=== PATIENT | female | born 1950 | race Caucasian/White ===

== ENCOUNTER → 2017-01-06 | Outpatient (CLI) | payer BC ==
--- NOTE | 2017-01-06 11:12 | MM ---
Reason for exam: follow-up at short interval from prior study. Last mammogram was performed 6 months ago. History: Patient is postmenopausal. Took hormonal contraceptives for 14 years beginning at age 26. Physical Findings: Nurse did not find any significant physical abnormalities on exam. MG 3D Diag Mammo W/Cad LT CC and MLO view(s) were taken of the left breast. Prior study comparison: June 23, 2016, bilateral MG 3d screening mammo w/cad. July 21, 2002, bilateral special view mammogram. The breast tissue is heterogeneously dense. This may lower the sensitivity of mammography. Nodule in the left breast is stable. These results were verbally communicated with the patient and result sheet given to the patient on 01/06/17. ASSESSMENT: Incomplete: need additional imaging evaluation, BI-RAD 0 RECOMMENDATION: Ultrasound of the left breast.
--- NOTE | 2017-01-06 11:13 | USB ---
Reason for exam: additional evaluation requested from abnormal screening. History: Patient is postmenopausal. Took hormonal contraceptives for 14 years beginning at age 26. US Breast LT Left breast breast ultrasound includes all four quadrants, the retroareolar region and axilla. Finding demonstrate a 0.5 x 0.3 x0.4cm oval, hypoechoic, vascular lesion at 3 o'clock minimally larger. These results were verbally communicated with the patient and result sheet given to the patient on 01/06/17. ASSESSMENT: Suspicious, BI-RAD 4 RECOMMENDATION: Ultrasound core biopsy of the left breast. Called Dr. Cazares with mammographic findings and has scheduled an appointment for the patient for 01/26/17 at 9:[address] Waller. PRELIMINARY REPORT CALLED AND FAXED TO DR. WALLER ON AT 300/TMP.
== END | disposition home or self-care (01) ==
LOC: RADMAMWWP 08:55
PROVIDERS: ATTEND Family Medicine
DX: R92.8 Other abnormal and inconclusive findings on diagnostic imaging of breast (principal)
CPT/HCPCS: 76641; G0206; G0279

== ENCOUNTER → 2017-01-14 | Day surgery (SDC) | payer BC ==
[~2017-01-14] MED LIST: BACITRACIN OINT 1 EACH PACKET TOPICAL ONE; LIDOCAINE 1% INJ 10MG/ML (20 ML MDV) ONE; SODIUM BICARB 4% 5 ML VIAL (0.48 MEQ/ML) ONE
--- NOTE | 2017-01-14 09:52 | USB ---
EXAMINATION TYPE: US biopsy breast VAD LT, MG postbiopsy diagnostic mammo LT wo CAD DATE OF EXAM: 01/14/2017 8:53 AM CLINICAL HISTORY: 66-year-old female R92.8 Abn Mammo. TECHNIQUE: Ultrasound guided core biopsy of the 3:00 left breast. COMPARISON: 01/06/2017 FINDINGS: The procedure of ultrasound guided core biopsy was explained to the patient. Benefits, alternatives, and risks were discussed. An informed consent was then obtained. Targeted scanning left breast 3:00 shows the 6 mm hypoechoic lesion that was noted to have slightly enlarged. This was targeted for biopsy. The patient was placed in supine positioning for imaging and for the procedure. The overlying skin was prepped and draped in usual sterile fashion. Lidocaine buffered with bicarbonate was used as anesthetic into the skin and subcutaneous tissue up to area of concern in the 3:00 left breast. Under ultrasound guidance, a 13-gauge vacuum-assisted mammotome Elite biopsy gun was used to obtain 6 core samples. Following this, a ribbon clip was left in lesion. The patient tolerated the procedure well. Small hematoma formation was noted adjacent to the biopsy site measuring 3.2 x 1.7 x 2.3 cm. Extended pressure was placed on the breast after procedure. The patient was kept in the radiology department for short stay after the procedure and then discharged home in stable condition. Post procedure mammogram shows clip in appropriate position at the expected mammographic abnormality, but, possibly slightly anteriorly displaced by the hematoma. IMPRESSION: Successful, uncomplicated ultrasound guided core biopsy of area of concern in the 3:00 left breast, full pathology results to follow. Small 3 cm hematoma formation adjacent to the biopsy site. Pathology Results: Benign BREAST, LEFT, CORE BIOPSY: BENIGN LYMPH NODE TISSUE. ADJACENT BENIGN BREAST AND FIBROADIPOSE TISSUE Recommendation Follow up mammogram of the left breast in 6 months. SUDARSHAN
== END ==
LOC: RADUSWWP 07:34
PROVIDERS: ATTEND Surgery
DX: R92.8 Other abnormal and inconclusive findings on diagnostic imaging of breast (principal); N64.89 Other specified disorders of breast; L76.32 Postprocedural hematoma of skin and subcutaneous tissue following other procedure
CPT/HCPCS: 88305; 19083; G0206; A4648; J2001

== ENCOUNTER → 2020-02-28 | Outpatient (CLI) | payer MEDICARE, BC ==
--- NOTE | 2020-02-29 09:57 | MM ---
Reason for exam: screening (asymptomatic). Last mammogram was performed 3 years and 1 month ago. History: Patient is postmenopausal. Benign US biopsy breast VAD LT of the left breast, January 14, 2017. Took hormonal contraceptives for 14 years beginning at age 26. Physical Findings: A clinical breast exam by your physician is recommended on an annual basis and results should be correlated with mammographic findings. MG 3D Diag Mammo W/Cad PHILLIP Bilateral CC and MLO view(s) were taken. Prior study comparison: January 14, 2017, left breast MG diagnostic mammo LT wo CAD. January 06, 2017, left breast MG 3d diag mammo w/cad LT. The breast tissue is heterogeneously dense. This may lower the sensitivity of mammography. Benign appearing bilateral calcifications. Previous mammotome biopsy in the left breast. There is chronic nodularity in the left breast. These results were verbally communicated with the patient and result sheet given to the patient on 02/28/20. ASSESSMENT: Benign, BI-RAD 2 RECOMMENDATION: Routine screening mammogram of both breasts in 1 year.
== END | disposition home or self-care (01) ==
LOC: RADMAMWWP 10:24
PROVIDERS: ATTEND Family Medicine
DX: R92.8 Other abnormal and inconclusive findings on diagnostic imaging of breast (principal)
CPT/HCPCS: 77066; G0279; 77062

== ENCOUNTER → 2023-02-12 | Outpatient (CLI) | payer MEDICARE, BC ==
--- NOTE | 2023-02-12 10:10 | US ---
EXAMINATION TYPE: US liver DATE OF EXAM: 02/12/2023 COMPARISON: NONE CLINICAL INDICATION: Female, 72 years old with history of 74.01 ELEVATION OF LEVELS OF LIVER TRANSAMI NASE L; Elevated liver enzymes. cholecystectomy TECHNIQUE: Multiple sonographic images of the right upper quadrant are obtained. FINDINGS: EXAM MEASUREMENTS: Liver Length: 16.8 cm Gallbladder Wall: Surgically absent CBD: 1.0 cm Right Kidney: 10.9 x 4.3 x 4.3 cm Pancreas: limited evaluation due to overlying bowel content Liver: appears wnl Gallbladder: Surgically absent Evidence for sonographic Adams's sign: no CBD: wnl Right Kidney: no evidence of hydronephrosis Visualized pancreas within normal limits. Visualized liver slightly heterogeneous without worrisome m ass or ductal dilatation. No adjacent ascites. Gallbladder surgically absent. Common bile duct upper limits of normal after cholecystectomy. No right-sided hydronephrosis. IMPRESSION: No worrisome focal intrahepatic mass or intrahepatic ductal dilatation.
== END | disposition home or self-care (01) ==
LOC: RADUSWWP 09:24
PROVIDERS: ATTEND Family Medicine
DX: R74.01 Elevation of levels of liver transaminase levels (principal)
CPT/HCPCS: 76705

== ENCOUNTER → 2023-03-26 | Outpatient (CLI) | payer MEDICARE, BC ==
--- NOTE | 2023-03-29 08:30 | MM ---
Reason for Exam: Screening (asymptomatic). Last mammogram was performed 3 year(s) and 1 month(s) ago. Patient History: Menarche at age 12. First Full-Term at age 30. Late child-bearing (after 30). Postmenopausal. Hormonal Contraceptives for 14 years from age 26 until age 40. 01/14/2017, Benign Core Biopsy on the left side. Risk Values: Aparna 5 year model risk: 2.9%. NCI Lifetime model risk: 7.4%. Prior Study Comparison: 01/06/2017 Left Diagnostic Mammogram, [facility]. 01/14/2017 Left Diagnostic Mammogram, [facility]. 02/28/2020 Bilateral Diagnostic Mammogram, [facility]. Tissue Density: There are scattered fibroglandular densities. Findings: Analyzed By CAD. There is no suspicious group of microcalcifications or new suspicious mass in either breast. Overall Assessment: Benign, BI-RAD 2 Management: Screening Mammogram of both breasts in 1 year. . Patient should continue monthly self-breast exams. A clinical breast exam by your physician is recommended on an annual basis. This exam should not preclude additional follow-up of suspicious palpable abnormalities. Note on Aparna scores and lifetime risk: 1. A Aparna score greater than 3% is considered moderate risk. If this is the case, consider specialist referral to assess eligibility for a risk reducing agent. 2. If overall lifetime risk for the development of breast cancer is 20% or higher, the patient may qualify for future screening with alternating mammogram and breast MRI. Electronically signed and approved by: Kolby Bolden M.D. Radiologis
== END | disposition home or self-care (01) ==
LOC: RADMAMWWP 13:22
PROVIDERS: ATTEND Family Medicine
DX: Z12.31 Encounter for screening mammogram for malignant neoplasm of breast (principal); Z78.0 Asymptomatic menopausal state
CPT/HCPCS: 77063; 77067

== ENCOUNTER → 2023-04-08 | Outpatient (CLI) | payer MEDICARE, BC ==
--- NOTE | 2023-05-04 12:59 | EM ---
EVENT MONITOR A 21-day event monitor. INDICATION: Cardiac murmur. FINDINGS: Underlying rhythm is sinus with episodes of paroxysmal atrial tachycardia with a heart rate of 138 beats per minute. CONCLUSION: This event monitor shows sinus rhythm with self-limited runs of paroxysmal atrial tachycardia with a heart rate of 130 beats per minute. MMODL / IJN: [id number] /
== END | disposition home or self-care (01) ==
LOC: RADECHMAIN 11:58
PROVIDERS: ATTEND Family Medicine
DX: I47.1 Supraventricular tachycardia (principal); I10 Essential (primary) hypertension
CPT/HCPCS: 93270

== ENCOUNTER 2023-04-12 20:49 | Inpatient (IN) | payer MEDICARE, BC ==
[2023-04-12] MEDS ORDERED: Alteplase PER PHARMACY Stroke 1 EACH MISC MISCELLANE PRN (20:51)
[2023-04-12] MEDS ORDERED: ALTEPLASE BOLUS FOR STROKE 7 MG in EMPTY SYRINGE 1 SYR IV STA (20:53)
[2023-04-12] MEDS ORDERED: ALTEPLASE 63 MG in EMPTY BAG 1 BAG IV STA (20:53)
[2023-04-12 21:16] LABS: Glucose,Whole Blood 120 mg/dL (70-110)
--- NOTE | 2023-04-12 21:16 | CT ---
EXAMINATION TYPE: CT brain wo con for TPA CT DLP: 1220.8 mGycm, Automated exposure control for dose reduction was used. DATE OF EXAM: 04/12/2023 9:07 PM COMPARISON: . CLINICAL INDICATION:Female, 72 years old with history of Neuro deficit, acute, stroke suspected, Neur o deficit, acute, stroke suspected TECHNIQUE: Brain: Axial CT images of the brain were obtained with coronal and sagittal reformats created and rev iewed. Contrast used: None. Oral contrast used: None. FINDINGS: Brain: Extra-axial spaces: No abnormal extra-axial fluid collections. Ventricular system: Within normal limits Cerebral parenchyma: No acute intraparenchymal hemorrhage or mass effect. The trevizo-white junction is well differentiated. Cerebellum: Unremarkable. Mass effect: No evidence of midline shift. Intracranial vasculature: Atherosclerotic calcifications of the intracranial vessels. Soft tissues: Normal. Calvarium/osseous structures: No depressed skull fracture. Paranasal sinuses and mastoid air cells: Mild scattered paranasal sinus disease. Visualized orbits: Orbital contents are intact. IMPRESSION: No acute intracranial process.
[2023-04-12 21:21] LABS: Basophils # (A) 0.1 k/uL (0-0.2); Basophils % (A) 1 %; Eosinophils # (A) 0.3 k/uL (0-0.7); Eosinophils % (A) 3 %; HCT 45.4 % (34.0-46.0); HGB 15.2 gm/dL (11.4-16.0); Lymphocytes # (A) 3.1 k/uL (1.0-4.8); Lymphocytes % (A) 34 %; MCH 30.3 pg (25.0-35.0); MCHC 33.5 g/dL (31.0-37.0); MCV 90.2 fL (80.0-100.0); Mean Platelet Volume 7.9; Monocytes # (A) 0.7 k/uL (0-1.0); Monocytes % (A) 8 %; Neutrophils # (A) 4.6 k/uL (1.3-7.7); Neutrophils % (A) 51 %; Platelet Count 285 k/uL (150-450); RBC 5.03 m/uL (3.80-5.40); RDW 12.7 % (11.5-15.5)
[2023-04-12 21:30] LABS: ALT 36 U/L (4-34); AST 32 U/L (14-36); African American GFR (CKD) >90 (>60 ml/min/1.73 sqM); Alkaline Phosphatase 85 U/L (38-126); Anion Gap 9 mmol/L; Blood Urea Nitrogen 10 mg/dL (7-17); Calcium 8.4 mg/dL (8.4-10.2); Carbon Dioxide 23 mmol/L (22-30); Chloride 105 mmol/L (98-107); Creatine Kinase 109 U/L (30-135); Glucose 123 mg/dL (74-99); Non-African American GFR(CKD) >90 (>60 ml/min/1.73 sqM); Potassium 3.5 mmol/L (3.5-5.1); Sodium 137 mmol/L (137-145); Total Bilirubin 1.9 mg/dL (0.2-1.3); Total Protein 7.4 g/dL (6.3-8.2)
[2023-04-12 21:38] LABS: Partial Thromboplastin Time 23.9 sec (22.0-30.0); Prothrombin Time 10.4 sec (9.0-12.0)
--- NOTE | 2023-04-12 21:47 | CT ---
EXAMINATION TYPE: CT angio head neck CT DLP: 511 mGycm, Automated exposure control for dose reduction was used. DATE OF EXAM: 04/12/2023 9:29 PM COMPARISON: . CLINICAL INDICATION:Female, 72 years old with history of Neuro deficit, acute, stroke suspected; PHH, Neuro deficit, acute, stroke suspected TECHNIQUE: Axially acquired helical CT angiogram of the head and neck was obtained with contrast. Axi al images are supplemented with 3D reconstructions [facility] NASCET criteria used. Contrast used:65ml mL of Isovue 370 with IV Contrast, Oral contrast used: None. FINDINGS: CTA HEAD: No evidence of acute intracranial hemorrhage, mass effect, or midline shift. The ventricles, sulci, a nd cisterns are unremarkable. The visualized portions of the internal carotid arteries, middle cerebral arteries, anterior cerebral arteries, and posterior cerebral arteries are patent. The basilar and vertebral arteries are patent. CTA NECK: Right Carotid System: The common carotid and external carotid arteries are patent. There is approximately 50% stenosis at t he carotid bifurcation secondary to calcified/noncalcified plaquing. The rest of the internal carotid artery is patent. Left Carotid System: The common carotid and external carotid arteries are patent. There is approximately 50% stenosis at t he carotid bifurcation secondary to calcified/noncalcified plaquing. The rest of the internal carotid artery is patent. Vertebral arteries are patent without evidence hemodynamically significant stenosis. There is a three-vessel aortic arch. The origins of the great vessels are patent. No evidence of hemo dynamically significant stenosis. Upper thorax: IMPRESSION: 1. No evidence of dissection of the cervical internal carotid arteries or vertebral arteries or any e vidence of significant stenosis at the carotid bifurcations. 2. No evidence of intracranial high-grade stenosis or intracranial aneurysm.
--- NOTE | 2023-04-12 21:49 | XR ---
EXAMINATION TYPE: XR chest 2V DATE OF EXAM: 04/12/2023 9:38 PM COMPARISON: None TECHNIQUE: XR chest 2V Frontal and lateral views of the chest. CLINICAL INDICATION:Female, 72 years old with history of altered mental status; FINDINGS: Lungs/Pleura: There is no evidence of pleural effusion, focal consolidation, or pneumothorax. Pulmonary vascularity: Unremarkable. Heart/mediastinum: Cardiomediastinal silhouette is unremarkable. Musculoskeletal: No acute osseous pathology. IMPRESSION: No acute cardiopulmonary disease/process.
[2023-04-12] MEDS ORDERED: SODIUM CHLORIDE 0.9% 50 ML MINI-BAG IV ONE (21:53)
--- NOTE | 2023-04-12 23:36 | ED ---
General Adult HPI - General Chief complaint: Neuro Symptoms/Deficit Stated complaint: Stroke like symptoms Time Seen by Provider: 04/12/23 20:50 Source: patient, EMS Mode of arrival: EMS Limitations: no limitations - History of Present Illness Initial comments: This is a 72-year-old female with a past medical history including hypertension presents emergency department via EMS for possible stroke. It was reported by the patient's family that she has had weakness in her lower legs throat the day but was acutely noted to have facial droop, slurring his patient, left-sided weakness and numbness that started 8:30 PM. They called EMS and EMS did arrive immediately. On arrival, the patient had significant symptoms including left- sided deficits that was worse during transfer by EMS. On arrival, the patient did not complain of any acute distress however but stated that she did have difficulties with moving her left side. - Related Data Home Medications Medication Instructions Recorded Confirmed Dorzolamide/Timolol/Pf 1 drop BOTH EYES BID 04/12/23 04/12/23 [Dorzolamide 2%-Timolol 0.5%] Famotidine [Pepcid] 20 mg PO DAILY PRN 04/12/23 04/12/23 Fexofenadine HCl [Pili Allergy] 180 mg PO HS 04/12/23 04/12/23 Latanoprost [Latanoprost 0.005%] 1 drop BOTH EYES HS 04/12/23 04/12/23 Pseudoephedrine 12Hr [Sudafed 12 120 mg PO Q12HR PRN 04/12/23 04/12/23 Hour] amLODIPine [Norvasc] 10 mg PO DAILY 04/12/23 04/12/23 Allergies Allergy/AdvReac Type Severity Reaction Status Date / Time No Known Allergies Allergy Verified 04/12/23 22:10 Review of Systems ROS Statement: Those systems with pertinent positive or pertinent negative responses have been documented in the HPI. ROS Other: All systems not noted in ROS Statement are negative. General Exam Limitations: physical limitation (L sided deficits, slurring of speech, left sided facial droop) General appearance: alert, in no apparent distress Head exam: Present: atraumatic, normocephalic, normal inspection Eye exam: Present: normal appearance, PERRL Pupils: Present: normal accommodation ENT exam: Present: normal exam, normal oropharynx, mucous membranes moist Neck exam: Present: normal inspection, full ROM Respiratory exam: Present: normal lung sounds bilaterally Cardiovascular Exam: Present: regular rate, normal rhythm, normal heart sounds GI/Abdominal exam: Present: soft, normal bowel sounds Extremities exam: Present: normal inspection, other (Decreased motion of the left upper and left lower extremity with no effort against gravity) Back exam: Present: normal inspection, full ROM Neurological exam: Present: alert, oriented X3, CN II-XII intact, other (L sided deficits, slurring of speech, left sided facial droop) Psychiatric exam: Present: normal affect, normal mood Skin exam: Present: warm, dry Course Vital Signs 04/12/23 04/12/23 04/12/23 20:52 21:47 22:02 Temperature 98.7 F Pulse Rate 88 90 86 Respiratory 18 18 16 Rate Blood Pressure 188/72 142/91 149/80 O2 Sat by Pulse 97 100 99 Oximetry 04/12/23 04/12/23 04/12/23 22:17 22:18 22:32 Temperature Pulse Rate 86 89 84 Respiratory 18 18 18 Rate Blood Pressure 157/97 157/97 159/81 O2 Sat by Pulse 99 97 96 Oximetry 04/12/23 04/12/23 04/13/23 22:47 23:02 00:02 Temperature Pulse Rate 105 H 87 55 L Respiratory 18 18 16 Rate Blood Pressure 180/88 153/82 134/67 O2 Sat by Pulse 96 96 95 Oximetry 04/13/23 00:17 Temperature Pulse Rate 75 Respiratory 16 Rate Blood Pressure 86/50 O2 Sat by Pulse 97 Oximetry EKG Findings - EKG Comments: EKG Findings:: An EKG was obtained and was interpreted by myself showing a rate of 86, VA interval 156, QRS duration 105 and QTC of 428. This EKG showed a normal sinus rhythm with no ST segment elevation or depression noted. Medical Decision Making - Medical Decision Making Was pt. sent in by a medical professional or institution (, PA, PLANNER, urgent care, hospital, or residential...) When possible be specific @ -No Did you speak to anyone other than the patient for history (EMS, parent, family, police, friend...)? What history was obtained from this source @ -Yes, EMS was stated that the patient had worsening symptoms just prior to arrival. Did you review nursing and triage notes (agree or disagree)? Why? @ -I reviewed and agree with nursing and triage notes Were old charts reviewed (outside hosp., previous admission, EMS record, old EKG, old radiological studies, urgent care reports/EKG's, residential records)? Report findings @ -No old charts were reviewed Differential Diagnosis (chest pain, altered mental status, abdominal pain women, abdominal pain men, vaginal bleeding, weakness, fever, dyspnea, syncope, headache, dizziness, GI bleed, back pain, seizure, CVA, palpatations, mental health)? @ -Acute CVA, TIA, ACS EKG interpreted by me (3pts min.). @ -As above X-rays interpreted by me (1pt min.). @ -Chest x-ray was obtained and was interpreted by myself showing no acute process. CT interpreted by me (1pt min.). @ -CT head and CTA head and neck were obtained per stroke protocol and were obtained and were interpreted by myself showing no acute process, no evidence of dissection of the cervical internal carotid arteries or vertebral arteries or any significant stenosis. There was no evidence of intracranial high-grade stenosis. U/S interpreted by me (1pt. min.). @ -None done What testing was considered but not performed or refused? (CT, X-rays, U/S, labs)? Why? @ -None What meds were considered but not given or refused? Why? @ -None Did you discuss the management of the patient with other professionals (professionals i.e. , PA, PLANNER, lab, RT, psych nurse, social contact worker, principal java developer, teacher, second officer, watch caser)? Give summary @ -Yes, Dr. Alejandre was contacted multiple times that the patient had resolution of her symptoms but then restarted. He did agree to do the patient alteplase I did agree with this. The patient's primary care physician was contacted for admission and the disability program navigator was also contacted for admission to the ICU status post alteplase administration. Was smoking cessation discussed for >3mins.? @ -No Was critical care preformed (if so, how long)? @ -Yes, see above Were there social determinants of health that impacted care today? How? (Homelessness, low income, unemployed, alcoholism, drug addiction, transportation, low edu. Level, literacy, decrease access to med. care, prison, rehab)? @ -No Was there de-escalation of care discussed even if they declined (Discuss DNR or withdrawal of care, Hospice)? DNR status @ -No What co-morbidities impacted this encounter? (DM, HTN, Smoking, COPD, CAD, Cancer, CVA, ARF, Chemo, Hep., AIDS, mental health diagnosis, sleep apnea, morbid obesity)? @ -None Was patient admitted / discharged? Hospital course, mention meds given and route, prescriptions, significant lab abnormalities, going to OR and other pertinent info. @ -The patient was seen and evaluated emergency department. Physical exam initially on arrival by EMS, a code alteplase was called at 2049 with an initial NIH of 13. There was a delay to CT secondary to the patient arty being on the table. CT scans were obtained were negative. When the patient arrived back from the computed tomography scan, she had complete resolution of her symptoms and stated that she felt 100%. While doing the stroke protocol workup, the patient was noted to have recurrence of her symptoms and restarted the stroke clock at 2135. Because of this, the neuro interventional list was contacted once again and we did agree to give the patient alteplase for her symptoms. Alteplase was given at 2147. The patient continued remain closely monitored observed and did have improvement of her symptoms but then did have recurrence of her symptoms once again while in the emergency department. The patient was placed in ICU in stable condition. Undiagnosed new problem with uncertain prognosis? @ -No Drug Therapy requiring intensive monitoring for toxicity (Heparin, Nitro, Insulin, Cardizem)? @ -No Were any procedures done? @ -No Diagnosis/symptom? @ -Acute CVA Acute, or Chronic, or Acute on Chronic? @ -Acute Uncomplicated (without systemic symptoms) or Complicated (systemic symptoms)? @ -Complicated Side effects of treatment? @ -No Exacerbation, Progression, or Severe Exacerbation? @ -No Poses a threat to life or bodily function? How? (Chest pain, USA, PR, pneumonia, PE, COPD, DKA, ARF, appy, cholecystitis, CVA, Diverticulitis, Homicidal, Suicidal, threat to staff... and all critical care pts) @ -Yes, continuing CVA and deficits can lead to permanent damage and possible . - Lab Data Result diagrams: 04/12/23 20:57 04/12/23 20:57 Lab Results 04/12/23 04/12/23 04/12/23 Range/Units 20:57 20:57 20:57 WBC 9.0 (3.8-10.6) k/uL RBC 5.03 (3.80-5.40) m/uL Hgb 15.2 (11.4-16.0) gm/dL Hct 45.4 (34.0-46.0) % MCV 90.2 (80.0-100.0) fL MCH 30.3 (25.0-35.0) pg MCHC 33.5 (31.0-37.0) g/dL RDW 12.7 (11.5-15.5) % Plt Count 285 (150-450) k/uL MPV 7.9 Neutrophils % 51 % Lymphocytes % 34 % Monocytes % 8 % Eosinophils % 3 % Basophils % 1 % Neutrophils # 4.6 (1.3-7.7) k/uL Lymphocytes # 3.1 (1.0-4.8) k/uL Monocytes # 0.7 (0-1.0) k/uL Eosinophils # 0.3 (0-0.7) k/uL Basophils # 0.1 (0-0.2) k/uL PT 10.4 (9.0-12.0) sec INR 1.0 (<1.2) APTT 23.9 (22.0-30.0) sec Sodium 137 (137-145) mmol/L Potassium 3.5 (3.5-5.1) mmol/L Chloride 105 (98-107) mmol/L Carbon Dioxide 23 (22-30) mmol/L Anion Gap 9 mmol/L BUN 10 (7-17) mg/dL Creatinine 0.54 (0.52-1.04) mg/dL Est GFR (CKD-EPI)AfAm >90 (>60 ml/min/1.73 sqM) Est GFR (CKD-EPI)NonAf >90 (>60 ml/min/1.73 sqM) Glucose 123 H (74-99) mg/dL POC Glucose (mg/dL) (70-110) mg/dL POC Glu Sleeve Maker ID Calcium 8.4 (8.4-10.2) mg/dL Total Bilirubin 1.9 H (0.2-1.3) mg/dL AST 32 (14-36) U/L ALT 36 H (4-34) U/L Alkaline Phosphatase 85 (38-126) U/L Creatine Kinase 109 (30-135) U/L Troponin I (0.000-0.034) ng/mL Total Protein 7.4 (6.3-8.2) g/dL Albumin 4.0 (3.5-5.0) g/dL 04/12/23 04/12/23 Range/Units 20:57 21:14 WBC (3.8-10.6) k/uL RBC (3.80-5.40) m/uL Hgb (11.4-16.0) gm/dL Hct (34.0-46.0) % MCV (80.0-100.0) fL MCH (25.0-35.0) pg MCHC (31.0-37.0) g/dL RDW (11.5-15.5) % Plt Count (150-450) k/uL MPV Neutrophils % % Lymphocytes % % Monocytes % % Eosinophils % % Basophils % % Neutrophils # (1.3-7.7) k/uL Lymphocytes # (1.0-4.8) k/uL Monocytes # (0-1.0) k/uL Eosinophils # (0-0.7) k/uL Basophils # (0-0.2) k/uL PT (9.0-12.0) sec INR (<1.2) APTT (22.0-30.0) sec Sodium (137-145) mmol/L Potassium (3.5-5.1) mmol/L Chloride (98-107) mmol/L Carbon Dioxide (22-30) mmol/L Anion Gap mmol/L BUN (7-17) mg/dL Creatinine (0.52-1.04) mg/dL Est GFR (CKD-EPI)AfAm (>60 ml/min/1.73 sqM) Est GFR (CKD-EPI)NonAf (>60 ml/min/1.73 sqM) Glucose (74-99) mg/dL POC Glucose (mg/dL) 120 H (70-110) mg/dL POC Glu Sleeve Maker ID Junie Patel Calcium (8.4-10.2) mg/dL Total Bilirubin (0.2-1.3) mg/dL AST (14-36) U/L ALT (4-34) U/L Alkaline Phosphatase (38-126) U/L Creatine Kinase (30-135) U/L Troponin I <0.012 (0.000-0.034) ng/mL Total Protein (6.3-8.2) g/dL Albumin (3.5-5.0) g/dL Critical Care Time Critical Care Time: Yes Total Critical Care Time: 42 Disposition Clinical Impression: Cerebrovascular accident (CVA) Disposition: ADMITTED IP TO THIS [facility] Condition: Serious Is patient prescribed a controlled substance at d/c from ED?: No Time of Disposition: 21:50 Decision to Admit Reason: Admit from EC Decision Date: 04/12/23 Decision Time: 21:50
[2023-04-12] MEDS ORDERED: ONDANSETRON 4 MG/2 ML VIAL IVP STA (23:56)
[2023-04-13] MEDS ORDERED: SODIUM CHLORIDE 0.9% 1,000 ML IV ONE (00:11)
[2023-04-13 00:33] LABS: Glucose,Whole Blood 137 mg/dL (70-110)
[2023-04-13] MEDS ORDERED: SODIUM CHLORIDE 0.9% 50 ML MINI-BAG IV ONE (00:34)
--- NOTE | 2023-04-13 05:35 | P.CNPUL ---
History of Present Illness Consult date: 04/13/23 Requesting physician: Dao Hough Reason for consult: other (ICU management) Chief complaint: CVA symptoms History of present illness: I am seeing this patient in new consultation today 04/13/2023 following an acute CVA status post infusion of TPA. Patient is a 72-year-old white female with past medical history significant for hypertension. She is a never smoker. Patient and her daughters are at the bedside. They report left-sided weakness, facial droop, and slurred speech starting around 6:30 yesterday evening. The patient reportedly did have 2 falls at home. EMS was immediately alerted, and the patient was transferred to the emergency department where a code stroke was initiated. Initial NIH score was 13. Brain CT showed no acute intracranial process. CTA of the head and neck showed no evidence of significant stenosis or dissection. The patient did receive TPA at 2147 last night. Symptoms reportedly transiently improved, and then deteriorated again. Patient is currently sitting up in bed, on room air, in no acute distress. She still has significant left- sided hemiplegia. Left arm is rigid without effort against gravity. Left leg also has no effort against gravity. No ataxia. She has obvious left-sided facial droop and mild dysarthria. No visual disturbances. BP is slightly hypertensive. Patient does have a cardiac event monitor on, which was reportedly ordered by her primary care provider Dr. Aishwarya Pabon. Heart rhythm is currently normal sinus on the bedside monitor. CBC and BMP on arrival were unremarkable. Coag profile unremarkable. Troponin less than 0.012. Neurology consult was obtained, and a 24-hour follow-up brain CT is ordered. Pop okeefe will be monitored in the intensive care unit. Review of Systems REVIEW OF SYSTEMS: CONSTITUTIONAL: Denies any recent significant weight loss or weight gain. EYES: Denies change in vision. EARS, NOSE, MOUTH, THROAT: Denies headaches, denies sore throat. CARDIOVASCULAR: Denies chest pain, palpitations or syncopal episodes. RESPIRATORY: Denies shortness of breath, cough, congestion or hemoptysis. GASTROINTESTINAL: Denies change in appetite, abdominal pain, nausea and vomiting, or diarrhea GENITOURINARY: Denies hematuria, denies infections. MUSKULOSKELETAL: Denies pain, denies swelling. INTEGUMENTARY: Denies rash, denies eczema. NEUROLOGICAL: See HPI PSYCHIATRIC: Denies anxiety, denies depression. HEMATOLOGIC/LYMPHATIC: Denies anemia, denies enlarged lymph node Past Medical History Past Medical History: Hypertension Additional Past Medical History / Comment(s): glaucoma History of Any Multi-Drug Resistant Organisms: None Reported Past Surgical History: Cholecystectomy Past Psychological History: No Psychological Hx Reported Smoking Status: Never smoker Medications and Allergies Home Medications Medication Instructions Recorded Confirmed Type Dorzolamide/Timolol/Pf 1 drop BOTH EYES BID 04/12/23 04/12/23 History [Dorzolamide 2%-Timolol 0.5%] Famotidine [Pepcid] 20 mg PO DAILY PRN 04/12/23 04/12/23 History Fexofenadine HCl [Pili Allergy] 180 mg PO HS 04/12/23 04/12/23 History Latanoprost [Latanoprost 0.005%] 1 drop BOTH EYES HS 04/12/23 04/12/23 History Pseudoephedrine 12Hr [Sudafed 12 120 mg PO Q12HR PRN 04/12/23 04/12/23 History Hour] amLODIPine [Norvasc] 10 mg PO DAILY 04/12/23 04/12/23 History Allergies Allergy/AdvReac Type Severity Reaction Status Date / Time No Known Allergies Allergy Verified 04/12/23 22:10 Physical Exam Vitals: Vital Signs Temp Pulse Pulse Resp BP BP Pulse Ox 04/13/23 04:19 97 18 147/66 95 04/13/23 04:00 98.1 F 81 13 125/61 93 L 04/13/23 03:19 86 20 125/61 92 L 04/13/23 03:00 101 H 16 145/66 95 04/13/23 02:29 86 14 139/74 96 04/13/23 02:19 98.2 F 100 20 145/66 94 L 04/13/23 01:19 82 16 159/80 95 04/13/23 00:49 95 20 155/82 96 04/13/23 00:19 98.2 F 84 16 141/75 96 04/13/23 00:17 75 16 86/50 97 04/13/23 00:04 98.1 F 101 H 20 171/81 94 L 04/13/23 00:02 55 L 16 134/67 95 04/13/23 00:00 82 04/12/23 23:40 98.1 F 18 04/12/23 23:02 87 18 153/82 96 04/12/23 22:47 105 H 18 180/88 96 04/12/23 22:32 84 18 159/81 96 04/12/23 22:18 89 18 157/97 97 04/12/23 22:17 86 18 157/97 99 04/12/23 22:02 86 16 149/80 99 04/12/23 21:47 90 18 142/91 100 04/12/23 20:52 98.7 F 88 18 188/72 97 Intake and Output 04/12/23 04/12/23 04/13/23 14:59 22:59 06:59 Intake Total 750 Balance 750 Intake: Intake, IV Titration 750 Amount Sodium Chloride 0.9% 1, 750 000 ml @ 999 mls/hr IV . Q1H1M [facility] Rx#:[id number] Other: Voiding Method External Catheter Weight 77.3 kg 79.6 kg GENERAL EXAM: Alert, 72-year-old white female, comfortable in no apparent distress. HEAD: Normocephalic and atraumatic. There is obvious left-sided facial droop with flattening of the left-sided nasolabial fold. EYES: Normal reaction of pupils, equal size. Central and peripheral vision is intact. Gaze is conjugate NOSE: Clear with pink turbinates. THROAT: No erythema or exudates. NECK: No masses, no JVD. CHEST: No chest wall deformity. LUNGS: Equal air entry with no crackles, wheeze, rhonchi or dullness. On room air. No conversational dyspnea or accessory muscle use.. CVS: S1 and S2 normal with grade 3 systolic ejection murmur, regular rhythm. No other extra heart sounds ABDOMEN: No hepatosplenomegaly, active bowel sounds, no guarding or rigidity. SPINE: No scoliosis or deformity SKIN: No rashes CENTRAL NERVOUS SYSTEM: Alert and oriented 3. Left arm and left leg with no movement against gravity. Right upper and lower extremity strength is 5/5. No limb ataxia noted. Sensory loss on the left side. There is mild to moderate dysarthria. EXTREMITIES: There is no peripheral edema, clubbing, or cyanosis. Peripheral pulses are intact. Results - Laboratory Findings CBC and BMP: 04/12/23 20:57 04/12/23 20:57 PT/INR, D-dimer PT 10.4 sec (9.0-12.0) 04/12/23 20:57 INR 1.0 (<1.2) 04/12/23 20:57 Abnormal lab findings: Abnormal Labs 04/12/23 04/12/23 04/13/23 20:57 21:14 00:31 Glucose 123 H POC Glucose (mg/dL) 120 H 137 H Total Bilirubin 1.9 H ALT 36 H - Diagnostic Findings Chest x-ray: image reviewed Assessment and Plan Assessment: Acute ischemic CVA, status post TPA infusion, without resolution of left-sided hemiplegia Benign essential hypertension History of fall GERD without esophagitis Plan: Patient's medications, labs, and imaging were reviewed Patient is status post TPA infusion Neuro checks per protocol Monitor for acute bleeding Repeat 24-hour brain CT Neurology consultation Obtain echocardiogram for concern of possible cardioembolic nature High Intensity statin started allow for permissive hypertension Protonix for GI prophylaxis Speech was consulted for swallow evaluation PT/OT consult was obtained There was concern of injury to the left elbow after the patient had 2 falls prior to arrival to the hospital, will order x-ray of the left arm We will continue to follow while the patient is in the intensive care unit I have personally seen and examined the patient, performed the documentation and the assessment and plan as written. Number of minutes spent on the visit:20 Time with Patient: Greater than 30
[2023-04-13 06:01] LABS: Basophils % (A) 0 %; Eosinophils % (A) 0 %; HCT 40.6 % (34.0-46.0); HGB 14.1 gm/dL (11.4-16.0); Lymphocytes # (A) 1.5 k/uL (1.0-4.8); Lymphocytes % (A) 14 %; MCH 30.7 pg (25.0-35.0); MCHC 34.7 g/dL (31.0-37.0); MCV 88.7 fL (80.0-100.0); Mean Platelet Volume 8.2; Monocytes # (A) 0.4 k/uL (0-1.0); Monocytes % (A) 4 %; Neutrophils # (A) 8.1 k/uL (1.3-7.7); Neutrophils % (A) 80 %; Platelet Count 279 k/uL (150-450); RBC 4.58 m/uL (3.80-5.40); RDW 12.9 % (11.5-15.5); WBC 10.1 k/uL (3.8-10.6)
[2023-04-13 06:10] LABS: African American GFR (CKD) >90 (>60 ml/min/1.73 sqM); Anion Gap 9 mmol/L; Blood Urea Nitrogen 9 mg/dL (7-17); Calcium 8.8 mg/dL (8.4-10.2); Carbon Dioxide 23 mmol/L (22-30); Chloride 104 mmol/L (98-107); Glucose 147 mg/dL (74-99); Non-African American GFR(CKD) >90 (>60 ml/min/1.73 sqM); Potassium 3.5 mmol/L (3.5-5.1); Sodium 136 mmol/L (137-145)
[2023-04-13] MEDS ORDERED: Potassium Replacement Protocol 1 EACH MISC MISCELLANE PRN (06:11)
[2023-04-13] MEDS: POTASSIUM CHLORIDE 10 MEQ in WATER FOR INJECTION 1 100ML.BAG IVPB SCH ×4 (06:26→12:39)
[2023-04-13 08:28] LABS: Chol/HDL Ratio 4.79 Ratio; LDL Cholesterol,Calculated 120.3 mg/dL (0.0-131.0)
--- NOTE | 2023-04-13 08:33 | XR ---
EXAMINATION TYPE: XR elbow limited LT DATE OF EXAM: 04/13/2023 CLINICAL HISTORY: pain TECHNIQUE: Frontal, lateral images of the left elbow are obtained. COMPARISON: None. FINDINGS: There is no acute fracture/dislocation evident of the elbow. No abnormal fat pad signs ar e seen. Posterior and lateral compartment soft tissue swelling noted. IMPRESSION: There is no acute fracture or dislocation of the elbow. ICD 10 NO FRACTURE, INITIAL EVALUATION
[2023-04-13] MEDS ORDERED: ATORVASTATIN 80 MG TAB PO SCH (09:00)
[2023-04-13] MEDS: PANTOPRAZOLE 40 MG/10 ML VIAL IV SCH (10:11)
[2023-04-13] MEDS: SODIUM CHLORIDE 0.9% 1,000 ML IV SCH (10:15)
--- NOTE | 2023-04-13 10:20 | CA ---
Transthoracic Echo Report Name: Lashanda Hernandez Age: 72 Gender: F : 1950 Exam Date: 04/13/2023 07:41 Exam Location: [facility] Ht (in): 65 Wt (lb): 175 Ordering Physician: Ke Barragan Attending/Referring Phys: Mountain Guide Preet Valles Procedure CPT: Indications: rule out cardioembolic CVA Cardiac Hx: Technical Quality: Technically difficult study Contrast 1: Lumason Total Dose (mL): 5 Contrast 2: Total Dose (mL): MEASUREMENTS (Male / Female) Normal Values 2D ECHO LV Diastolic Diameter PLAX 3.7 cm 4.2 - 5.9 / 3.9 - 5.3 cm LV Systolic Diameter PLAX 2.4 cm IVS Diastolic Thickness 1.0 cm 0.6 - 1.0 / 0.6 - 0.9 cm LVPW Diastolic Thickness 1.1 cm 0.6 - 1.0 / 0.6 - 0.9 cm LV Relative Wall Thickness 0.6 RV Internal Dim ED PLAX 2.1 cm LVOT Diameter 2.0 cm Aortic Root Diameter 2.6 cm LA Systolic Diameter LX 2.1 cm 3.0 - 4.0 / 2.7 - 3.8 cm LV Diastolic Volume MOD BP 63.2 cm??? 67 - 155 / 56 - 104 cm??? LV Systolic Volume MOD BP 29.3 cm??? 22 - 58 / 19 - 49 cm??? LV Ejection Fraction MOD BP 53.7 % >= 55 % LV Cardiac Index MOD BP 1583.4 cm???/min???m??? LV Diastolic Volume MOD 4C 90.0 cm??? LV Systolic Volume MOD 4C 30.5 cm??? LV Ejection Fraction MOD 4C 66.1 % LV Cardiac Index MOD 4C 2774.6 cm???/min???m??? LV Diastolic Length 4C 6.7 cm LV Systolic Length 4C 6.4 cm LV Diastolic Volume MOD 2C 38.0 cm??? LV Systolic Volume MOD 2C 24.6 cm??? LV Ejection Fraction MOD 2C 35.2 % LV Cardiac Index MOD 2C 624.6 cm???/min???m??? LV Diastolic Length 2C 5.6 cm LV Systolic Length 2C 5.6 cm LA Volume 33.7 cm??? 18 - 58 / 22 - 52 cm??? Ascending Aorta Diameter 2.4 cm DOPPLER AV Peak Velocity 201.3 cm/s AV Peak Gradient 16.2 mmHg AV Mean Velocity 139.9 cm/s AV Mean Gradient 9.4 mmHg AV Velocity Time Integral 34.4 cm AI Peak Velocity 243.1 cm/s AI Peak Gradient 23.6 mmHg AI Pressure Half Time 425.8 ms LVOT Peak Velocity 165.8 cm/s LVOT Peak Gradient 11.0 mmHg AV Area Cont Eq pk 2.6 cm??? MV Peak Velocity 142.1 cm/s MV Peak Gradient 8.1 mmHg MV Mean Velocity 85.8 cm/s MV Mean Gradient 3.4 mmHg MV Velocity Time Integral 35.8 cm MR Peak Velocity 211.6 cm/s MR Peak Gradient 17.9 mmHg Mitral E Point Velocity 86.9 cm/s Mitral A Point Velocity 132.2 cm/s Mitral E to A Ratio 0.7 MV Deceleration Time 315.0 ms TR Peak Velocity 249.1 cm/s TR Peak Gradient 24.8 mmHg Right Ventricular Systolic Press 29.8 mmHg PV Peak Velocity 173.1 cm/s PV Peak Gradient 12.0 mmHg FINDINGS Left Ventricle Normal LV size. .left ventricular ejection fraction is estimated at 55-60 %.normal left ventricular wall motion. Right Ventricle Normal right ventricular size. Right Atrium Normal right atrial size. Left Atrium Normal left atrial size. Mitral Valve Structurally normal mitral valve. Mild mitral regurgitation. No mitral stenosis. Aortic Valve Aortic valve not well visualized. Mild AI Tricuspid Valve Structurally normal tricuspid valve. MildTR. Pulmonic Valve Pulmonic valve not well visualized. No pulmonic regurgitation. Pericardium Normal pericardium. Aorta Normal size aortic root and proximal ascending aorta. CONCLUSIONS Technically difficult study. 1. Normal left ventricle size and systolic function 2. Mild mitral, aortic and tricuspid regurgitation Previewed by: Dr. Anne Fox MD (Electronically Signed) Final Date: 13 April 2023 10:19
--- NOTE | 2023-04-13 11:42 | P.HPIM ---
History of Present Illness Patient is a pleasant 72-year-old female came in for flaccid paralysis in the left side. Patient had on and off for weakness which lasted for a few minutes and eventually had prominent weakness after TPA on the left side. CT of the head did not show any significant abnormality CT angios did not show any carotid stenosis or dissection. Patient's strength is 0/5 on left upper and lower extremity and patient has left-sided facial weakness. Patient does have history of hypertension the does not smoke and does not take any antiplatelet medications at home. Echocardiogram did not show any significant abnormality and LDL is 120. REVIEW OF SYSTEMS: CONSTITUTIONAL: No fever, no malaise, no fatigue. HEENT: No recent visual problems or hearing problems. Denied any sore throat. CARDIOVASCULAR: No chest pain, orthopnea, PND, no palpitations, no syncope. PULMONARY: No shortness of breath, no cough, no hemoptysis. GASTROINTESTINAL: No diarrhea, no nausea, no vomiting, no abdominal pain. NEUROLOGICAL: No headaches HEMATOLOGICAL: Denies any bleeding or petechiae. GENITOURINARY: Denies any burning micturition, frequency, or urgency. MUSCULOSKELETAL/RHEUMATOLOGICAL: Denies any joint pain, swelling, or any muscle pain. ENDOCRINE: Denies any polyuria or polydipsia. The rest of the 14-point review of systems is negative. PHYSICAL EXAMINATION: GENERAL: The patient is alert and oriented x3, not in any acute distress. Well developed, well nourished. HEENT: Pupils are round and equally reacting to light. EOMI. No scleral icterus. No conjunctival pallor. Normocephalic, atraumatic. No pharyngeal erythema. No thyromegaly. CARDIOVASCULAR: S1 and S2 present. No murmurs, rubs, or gallops. PULMONARY: Chest is clear to auscultation, no wheezing or crackles. ABDOMEN: Soft, nontender, nondistended, normoactive bowel sounds. No palpable organomegaly. MUSCULOSKELETAL: No joint swelling or deformity. EXTREMITIES: No cyanosis, clubbing, or pedal edema. NEUROLOGICAL: Left-sided paralysis as mentioned above SKIN: No rashes. Assessment and plan -Acute stroke involving perforating branches of middle cerebral artery territory and probably in genu of the internal capsule. We will obtain MRI rest of the workup as mentioned above patient will be due a dual antiplatelet therapy neurology evaluation, physical therapy and outpatient therapy consultation -Hypertension patient blood pressure is 150/73 will hold off and have his medication to allow permissive hypertension -hyperlipidemia was started on nystatin probably related to high-dose statin -Glaucoma: Patient will be resumed on home medications DVT prophylaxis: Lovenox Past Medical History Past Medical History: Hypertension Additional Past Medical History / Comment(s): glaucoma History of Any Multi-Drug Resistant Organisms: None Reported Past Surgical History: Cholecystectomy Past Psychological History: No Psychological Hx Reported Smoking Status: Never smoker Medications and Allergies Home Medications Medication Instructions Recorded Confirmed Type Dorzolamide/Timolol/Pf 1 drop BOTH EYES BID 04/12/23 04/12/23 History [Dorzolamide 2%-Timolol 0.5%] Famotidine [Pepcid] 20 mg PO DAILY PRN 04/12/23 04/12/23 History Fexofenadine HCl [Pili Allergy] 180 mg PO HS 04/12/23 04/12/23 History Latanoprost [Latanoprost 0.005%] 1 drop BOTH EYES HS 04/12/23 04/12/23 History Pseudoephedrine 12Hr [Sudafed 12 120 mg PO Q12HR PRN 04/12/23 04/12/23 History Hour] amLODIPine [Norvasc] 10 mg PO DAILY 04/12/23 04/12/23 History Allergies Allergy/AdvReac Type Severity Reaction Status Date / Time No Known Allergies Allergy Verified 04/12/23 22:10 Physical Exam Vitals: Vital Signs Temp Pulse Pulse Resp BP BP Pulse Ox 04/13/23 11:00 74 14 150/73 92 L 04/13/23 10:00 95 15 158/80 95 04/13/23 09:30 95 04/13/23 09:00 80 14 134/97 93 L 04/13/23 08:00 98.0 F 84 13 142/77 94 L 04/13/23 07:00 71 11 L 142/63 95 04/13/23 06:00 78 13 137/68 91 L 04/13/23 05:19 86 18 137/68 92 L 04/13/23 05:00 100 15 147/66 95 04/13/23 04:19 97 18 147/66 95 04/13/23 04:00 98.1 F 81 13 125/61 93 L 04/13/23 03:19 86 20 125/61 92 L 04/13/23 03:00 101 H 16 145/66 95 04/13/23 02:29 86 14 139/74 96 04/13/23 02:19 98.2 F 100 20 145/66 94 L 04/13/23 01:19 82 16 159/80 95 04/13/23 00:49 95 20 155/82 96 04/13/23 00:19 98.2 F 84 16 141/75 96 04/13/23 00:17 75 16 86/50 97 04/13/23 00:04 98.1 F 101 H 20 171/81 94 L 04/13/23 00:02 55 L 16 134/67 95 04/13/23 00:00 82 04/12/23 23:40 98.1 F 18 04/12/23 23:02 87 18 153/82 96 04/12/23 22:47 105 H 18 180/88 96 04/12/23 22:32 84 18 159/81 96 04/12/23 22:18 89 18 157/97 97 04/12/23 22:17 86 18 157/97 99 04/12/23 22:02 86 16 149/80 99 04/12/23 21:47 90 18 142/91 100 04/12/23 20:52 98.7 F 88 18 188/72 97 Intake and Output 04/12/23 04/13/23 04/13/23 22:59 06:59 14:59 Intake Total 750 350 Output Total 450 150 Balance 300 200 Intake: IV 150 Sodium Chloride 0.9% 1, 150 000 ml @ 75 mls/hr IV . [id number] [facility] Rx#:[id number] Intake, IV Titration 750 200 Amount Potassium Chloride 10 meq 200 In Water For Injection 1 100ml.bag @ 100 mls/hr IVPB Q1HR [facility] Rx#: [id number] Sodium Chloride 0.9% 1, 750 000 ml @ 999 mls/hr IV . Q1H1M [facility] Rx#:[id number] Output: Urine 450 150 Other: Voiding Method External Catheter External Catheter Weight 77.3 kg 79.6 kg Results CBC & Chem 7: 04/13/23 05:37 04/13/23 05:37 Labs: Abnormal Lab Results - Last 24 Hours (Table) 04/12/23 04/12/2323 Range/Units 20:57 21:14 00:31 Neutrophils # (1.3-7.7) k/uL Sodium (137-145) mmol/L Glucose 123 H (74-99) mg/dL POC Glucose (mg/dL) 120 H 137 H (70-110) mg/dL Total Bilirubin 1.9 H (0.2-1.3) mg/dL ALT 36 H (4-34) U/L HDL Cholesterol (40.00-60.00) mg/dL 04/13/23 04/13/23 Range/Units 05:37 05:37 Neutrophils # 8.1 H (1.3-7.7) k/uL Sodium 136 L (137-145) mmol/L Glucose 147 H (74-99) mg/dL POC Glucose (mg/dL) (70-110) mg/dL Total Bilirubin (0.2-1.3) mg/dL ALT (4-34) U/L HDL Cholesterol 35.50 L (40.00-60.00) mg/dL Thrombosis Risk Factor Assmnt - Choose All That Apply Any of the Below Risk Factors Present?: No Each Risk Factor Represents 2 Points: Age 61-74 years Thrombosis Risk Factor Assessment Total Risk Factor Score: 2 Thrombosis Risk Factor Assessment Level: Low Risk
[2023-04-13] MEDS ORDERED: FAMOTIDINE 20 MG TAB PO PRN (11:43)
--- NOTE | 2023-04-13 11:52 | P.CNNES ---
History of Present Illness Consult date: 04/13/23 Requesting physician: Dao oHugh Reason for Consult: CVA History of Present Illness: Patient is a 72-year-old right-handed female with history of hypertension came to the hospital by ambulance yesterday at 8:49 PM for acute stroke. Patient states that her symptoms started somewhat intermittent yesterday. In the m orning she felt weird, felt weak all over and the knees felt "odd". The symptoms resolved. At 6 PM, she was sitting in the couch, when she tried to get up and could not. After the third attempt, when she was able to get up, she fell on the floor. She stayed there, was able to gather herself and was able to get up. She was feeling fine subsequently. However she told her daughter to take her to the hospital. At around 8 PM, she was on her feet, getting ready to go to the hospital, when she suddenly started leaning to the left, as if pulling to the left and she fell down. At that time she developed slurred speech and left-sided weakness. EMS was called. As per EMS flow sheet, it was reported that patient was sitting at the table in the kitchen icing elbow because of a previous fall she had earlier in the day. This stated she was getting up to go to the bathroom and her leg stopped working and she fell onto the floor. They stated that she had 2 falls throughout the day and was having some difficulty getting around off and on. Patient and family deny her hitting her head during these previous falls and deny her being on the blood thinners. When EMS evaluated, patient was alert and oriented 4 with GCS of 15. Patient has right facial droop on the left side. Left-sided g rip strength was slightly weaker than the right. And patient has left arm drift. Pupils were equal and reacting. Family mentioned that the symptoms started just prior to the fall before them calling 911 at 08:22 PM. EKG showed sinus rhythm. Patient denied any chest pain, headache or dizziness or nausea. 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 Patient's pupils were still equal, reacting. Patient's vitals at the scene was blood glucose 126, pulse rate 77, blood pressure 155/77, saturation 97%. Blood test shows normal CBC, PT/PTT, normal CMP with mildly elevated ALT 36. Troponin negative. CT head normal. I personally reviewed CT head, agree with the findings. Chest x-ray revealed no acute cardiopulmonary process. EKG shows ectopic atrial rhythm. Left atrial enlargement. Incomplete right bundle branch block. Left elbow x-ray showed no fracture or dislocation. In the ED, her NIH stroke scale reported was 13. Stroke code alteplase was activated at 8:50 PM. ED staff discussed case with neuro intervention/stroke neurologist. Apparently patient while in the CT scanner, improved and the symptoms completely resolved. She was considered not a candidate for TPA, but the symptoms reappeared and a second stroke code was activated at 9:35 PM. Patient then received TPA bolus dose at 9:48 PM. Patient improved significantly after the TPA, but at midnight, the symptoms reappeared, and she became flaccid on the left side. Patient has been having some myoclonic twitches of the left leg overnight. Patient has history of hypertension, denies diabetes, tobacco or alcohol use. She does not take any antiplatelet medication at home. Review of Systems Constitutional: Reports weight gain, Reports weight loss, Denies chills, Denies fever Eyes: denies blurred vision (Glaucoma), denies diplopia, denies pain Ears: bilateral: decreased hearing, deny: earache, tinnitus Ears, nose, mouth and throat: Denies headache, Denies sore throat Cardiovascular: Denies chest pain, Denies shortness of breath Respiratory: Denies cough, Denies excessive sputum Gastrointestinal: Denies abdominal pain, Denies diarrhea, Denies nausea, Denies vomiting Genitourinary: Denies dysuria, Denies hematuria Musculoskeletal: Denies low back pain, Denies myalgias, Denies neck pain Integumentary: Denies pruritus, Denies rash Neurological: Reports as per HPI Psychiatric: Denies anxiety, Denies depression Endocrine: Reports weight change, Denies fatigue Hematologic/Lymphatic: Denies easy bleeding, Denies easy bruising Past Medical History Past Medical History: Hypertension Additional Past Medical History / Comment(s): glaucoma History of Any Multi-Drug Resistant Organisms: None Reported Past Surgical History: Cholecystectomy Past Psychological History: No Psychological Hx Reported Smoking Status: Never smoker Medications and Allergies Home Medications Medication Instructions Recorded Confirmed Type Dorzolamide/Timolol/Pf 1 drop BOTH EYES BID 04/12/23 04/12/23 History [Dorzolamide 2%-Timolol 0.5%] Famotidine [Pepcid] 20 mg PO DAILY PRN 04/12/23 04/12/23 History Fexofenadine HCl [Pili Allergy] 180 mg PO HS 04/12/23 04/12/23 History Latanoprost [Latanoprost 0.005%] 1 drop BOTH EYES HS 04/12/23 04/12/23 History Pseudoephedrine 12Hr [Sudafed 12 120 mg PO Q12HR PRN 04/12/23 04/12/23 History Hour] amLODIPine [Norvasc] 10 mg PO DAILY 04/12/23 04/12/23 History Allergies Allergy/AdvReac Type Severity Reaction Status Date / Time No Known Allergies Allergy Verified 04/12/23 22:10 Physical Examination - Vital Signs Vital Signs: Vital Signs Temp Pulse Pulse Resp BP BP Pulse Ox 04/13/23 09:30 95 04/13/23 09:00 80 14 134/97 93 L 04/13/23 08:00 98.0 F 84 13 142/77 94 L 04/13/23 07:00 71 11 L 142/63 95 04/13/23 06:00 78 13 137/68 91 L 04/13/23 05:19 86 18 137/68 92 L 04/13/23 05:00 100 15 147/66 95 04/13/23 04:19 97 18 147/66 95 04/13/23 04:00 98.1 F 81 13 125/61 93 L 04/13/23 03:19 86 20 125/61 92 L 04/13/23 03:00 101 H 16 145/66 95 04/13/23 02:29 86 14 139/74 96 04/13/23 02:19 98.2 F 100 20 145/66 94 L 04/13/23 01:19 82 16 159/80 95 04/13/23 00:49 95 20 155/82 96 04/13/23 00:19 98.2 F 84 16 141/75 96 04/13/23 00:17 75 16 86/50 97 04/13/23 00:04 98.1 F 101 H 20 171/81 94 L 04/13/23 00:02 55 L 16 134/67 95 04/13/23 00:00 82 04/12/23 23:40 98.1 F 18 04/12/23 23:02 87 18 153/82 96 04/12/23 22:47 105 H 18 180/88 96 04/12/23 22:32 84 18 159/81 96 04/12/23 22:18 89 18 157/97 97 04/12/23 22:17 86 18 157/97 99 04/12/23 22:02 86 16 149/80 99 04/12/23 21:47 90 18 142/91 100 04/12/23 20:52 98.7 F 88 18 188/72 97 Intake and Output 04/12/23 04/13/23 04/13/23 22:59 06:59 14:59 Intake Total 750 200 Output Total 450 150 Balance 300 50 Intake: Intake, IV Titration 750 200 Amount Potassium Chloride 10 meq 200 In Water For Injection 1 100ml.bag @ 100 mls/hr IVPB Q1HR ELOISA Rx#: [id number] Sodium Chloride 0.9% 1, 750 000 ml @ 999 mls/hr IV . Q1H1M ONE Rx#:[id number] Output: Urine 450 150 Other: Voiding Method External Catheter External Catheter Weight 77.3 kg 79.6 kg Patient is an elderly female, very pleasant, in no acute distress. She appears slightly stressed. Patient is alert awake oriented to time place and person. Speech and language functions revealed mild dysarthria. Patient can name and repeat very well. No aphasia, patient has mild dysarthria. Attention, concentration and fund of knowledge is adequate. On cranial nerve examination, pupils are equal, round and reacting to light, visual machado are full on confrontation, with no neglect on double simultaneous stimulation. Extraocular muscles are intact with no nystagmus. Patient has left facial weakness, moderate, but central type with sparing of the forehead, and her tongue protrudes to the midline. Palatal elevation and sensation normal, hearing and shoulder shrug normal, facial sensation slightly decreased on the left as compared to the right. On muscle strength testing, there is no pronator drift on the right side. Patient is completely flaccid on the left side, arm and leg. No movement proximally or distally. Deep tendon reflexes are symmetric biceps 1, brachioradialis trace, knees 1+, ankles 1 and plantar is downgoing on the right, up on the left. Sensory to touch is slightly decreased on the left side including arm and leg. Cerebellar function showed no ataxia for [id number] testing on the right, cannot perform on the left. No ataxia for [id number] testing on right side. Tone is decreased on the left and bulk of muscles normal. Gait deferred.. On general examination, there is no carotid bruit or murmur, S1-S2 audible. Chest is clear on consultation. Abdomen is soft nontender. No organomegaly, bowel sounds present. Peripheral pulses are present. No edema. Results - Laboratory Findings CBC and BMP: 04/13/23 05:37 04/13/23 05:37 Abnormal Lab Findings: Abnormal Labs 04/12/23 04/12/23 04/13/23 20:57 21:14 00:31 Neutrophils # Sodium Glucose 123 H POC Glucose (mg/dL) 120 H 137 H Total Bilirubin 1.9 H ALT 36 H HDL Cholesterol 04/13/23 04/13/23 05:37 05:37 Neutrophils # 8.1 H Sodium 136 L Glucose 147 H POC Glucose (mg/dL) Total Bilirubin ALT HDL Cholesterol 35.50 L Assessment and Plan Assessment: * Acute ischemic stroke, with left hemiplegia. Patient has presented with recurrent TIA yesterday, then had an acute stroke for which patient received TPA in a timely manner in the ED. Unfortunately post-TPA, overnight the hemiplegia got worse again. At present her NIH stroke scale is 12. Mechanism of stroke possible from lacunar stroke involving internal capsule, or basis pontis. Rule out embolic source. * Hypertension * Hyperlipidemia Plan: * Stat MRI of the brain without contrast, evaluate for acute CVA, rule out hemorrhagic conversion, as her symptoms got worse overnight. * 2-D echo revealed normal left ventricular size and systolic function with EF reported 55-60%. Mild MR, AR. Left atrial size is normal. * CTA head and neck showed: No evidence of dissection of the cervical internal carotid arteries or vertebral arteries or any evidence of significant stenosis of the carotid bifurcations. No evidence of intracranial high-grade stenosis or intracranial aneurysm. * Fasting a.m. lipid panel cholesterol 170, LDL 120, HDL 35 and triglycerides 71. Agree with starting high intensity statins with Lipitor 80 mg. * Hemoglobin A1c * Permissive hypertension for next 24-48 hours * Close neuro checks as per protocol. * Telemetry monitoring rule out any arrhythmia * Patient was not taking any antiplatelet medication at home. Patient will be started on aspirin 325 mg, 24 hours post-TPA, if no bleed. * PT, OT, speech therapy. * DVT prophylaxis: Heparin 5000 units subcu every 8 hours, to be started 24 hours post-TPA. * Neurology will continue to follow. Thank you for the consult.
[2023-04-13] MEDS: DORZOLAMIDE-TIMOLOL 2.23%/0.68 10ML BTL BOTH EYES SCH ×2 (12:39→20:02)
--- NOTE | 2023-04-13 18:08 | MR ---
EXAMINATION TYPE: MR brain wo con DATE OF EXAM: 04/13/2023 5:37 PM COMPARISON: NONE HISTORY: Acute CVA, FINDINGS: The ventricles, basal cisterns and sulci overlying the cerebral convexities are mildly enlarged. There is evidence of mild periventricular white matter ischemic demyelination. Remote deep white matter insults are also noted. Diffusion-weighted imaging demonstrates abnormal increased signal extending from the right putamen in to the right sprague radiata compatible with acute CVA. No additional areas of abnormal signal are see n on diffusion weighted imaging. There is no evidence for midline shift or mass effect. Acute intracranial hemorrhage or extra-axial collection is not evident. The paranasal sinuses and mastoid air cells are well-aerated. IMPRESSION: Diffusion-weighted imaging demonstrates abnormal increased signal extending from the right putamen in to the right sprague radiata compatible with acute CVA.
[2023-04-13] MEDS: LATANOPROST 0.005% OPHTH DROPS 2.5 ML BTL BOTH EYES SCH (20:00)
--- NOTE | 2023-04-13 21:37 | CT ---
EXAMINATION TYPE: CT brain wo con DATE OF EXAM: 04/13/2023 COMPARISON: 04/12/2023 HISTORY: 24 hour Post TPA infusion CT DLP: 1204.[address] of the brain was performed. The ventricles, basal cisterns and sulci overlying the cerebral convexities demonstrate mild enlargem ent. Interval evolution of acute CVA right putamen extending into the right sprague radiata. No eviden ce for hemorrhagic transformation. No midline shift. Remote insult left putamen. There is no evidence for intracranial hemorrhage or sulcal effacement. There is decreased attenuation about the periventricular white matter and deep white matter of both c erebral hemispheres, compatible with chronic small vessel ischemia. Differential diagnosis does inclu de demyelination. No mass effects are seen.No midline shift. Osseous calvarium is intact. If symptoms persist consider MRI. IMPRESSION: 1. Interval evolution of acute CVA right putamen extending into the right sprague radiata. No evidence for hemorrhagic transformation. No midline shift.
[2023-04-14] MEDS ORDERED: ASPIRIN 325 MG TAB PO STA (00:34)
[2023-04-14 05:12] LABS: Basophils # (A) 0.1 k/uL (0-0.2); Basophils % (A) 1 %; Eosinophils # (A) 0.1 k/uL (0-0.7); Eosinophils % (A) 1 %; HCT 37.6 % (34.0-46.0); HGB 12.9 gm/dL (11.4-16.0); Lymphocytes # (A) 2.7 k/uL (1.0-4.8); Lymphocytes % (A) 30 %; MCH 30.7 pg (25.0-35.0); MCHC 34.4 g/dL (31.0-37.0); MCV 89.3 fL (80.0-100.0); Monocytes # (A) 0.7 k/uL (0-1.0); Monocytes % (A) 8 %; Neutrophils # (A) 5.2 k/uL (1.3-7.7); Neutrophils % (A) 58 %; Platelet Count 258 k/uL (150-450); RBC 4.21 m/uL (3.80-5.40); RDW 12.8 % (11.5-15.5)
[2023-04-14 05:20] LABS: African American GFR (CKD) >90 (>60 ml/min/1.73 sqM); Anion Gap 8 mmol/L; Blood Urea Nitrogen 7 mg/dL (7-17); Calcium 8.5 mg/dL (8.4-10.2); Carbon Dioxide 25 mmol/L (22-30); Chloride 104 mmol/L (98-107); Glucose 110 mg/dL (74-99); Non-African American GFR(CKD) >90 (>60 ml/min/1.73 sqM); Potassium 3.9 mmol/L (3.5-5.1); Sodium 137 mmol/L (137-145)
[2023-04-14] MEDS ORDERED: Potassium Replacement Protocol 1 EACH MISC MISCELLANE PRN (05:50)
[2023-04-14] MEDS: POTASSIUM CHLORIDE 10 MEQ in WATER FOR INJECTION 1 100ML.BAG IVPB SCH ×2 (06:17→08:43)
[2023-04-14] MEDS: ENOXAPARIN 40 MG/0.4 ML SYRINGE SQ SCH (08:43)
[2023-04-14] MEDS: PANTOPRAZOLE 40 MG/10 ML VIAL IV SCH (08:43)
[2023-04-14] MEDS: ATORVASTATIN 80 MG TAB PO SCH (08:44)
[2023-04-14] MEDS: ASPIRIN 325 MG TAB PO SCH (08:44)
[2023-04-14] MEDS: DORZOLAMIDE-TIMOLOL 2.23%/0.68 10ML BTL BOTH EYES SCH ×2 (08:53→20:15)
--- NOTE | 2023-04-14 11:13 | P.PN ---
Subjective Progress Note Date: 04/14/23 Principal diagnosis: CVA. I am seeing this patient in new consultation today 04/13/2023 following an acute CVA status post infusion of TPA. Patient is a 72-year-old white female with past medical history significant for hypertension. She is a never smoker. Patient and her daughters are at the bedside. They report left-sided weakness, facial droop, and slurred speech starting around 6:30 yesterday evening. The patient reportedly did have 2 falls at home. EMS was immediately alerted, and the patient was transferred to the emergency department where a code stroke was initiated. Initial NIH score was 13. Brain CT showed no acute intracranial process. CTA of the head and neck showed no evidence of significant stenosis or dissection. The patient did receive TPA at 2147 last night. Symptoms reportedly transiently improved, and then deteriorated again. Patient is currently sitting up in bed, on room air, in no acute distress. She still has significant left- sided hemiplegia. Left arm is rigid without effort against gravity. Left leg also has no effort against gravity. No ataxia. She has obvious left-sided facial droop and mild dysarthria. No visual disturbances. BP is slightly hypertensive. Patient does have a cardiac event monitor on, which was reported ly ordered by her primary care provider Dr. Aishwarya Pabon. Heart rhythm is currently normal sinus on the bedside monitor. CBC and BMP on arrival were unremarkable. Coag profile unremarkable. Troponin less than 0.012. Neurology consult was obtained, and a 24-hour follow-up brain CT is ordered. Patient will be monitored in the intensive care unit. Progress note dated 04/14/2023. 72-year-old female seen today in room 255. She received TPA on April 12 for a CVA. She presented with left-sided weakness. She's currently on room air. She's getting saline at 75 mL an hour. A recent MRI showed changes in the right putamen and sprague radiata, consistent with an acute CVA. The patient is able to move her left leg partially. She has a dense plegia of her left upper extremity. She also has a left facial droop, and her speech is somewhat garbled. White count 9.0, hemoglobin 12.9, hematocrit 37.6, and platelet count is 258,000. Sodium 137, potassium 3.9, chlorides 104, CO2 25, anion gap 8, BUN 7, and creatinine 0.56. Brain MRI and brain CT have been reviewed. Objective - Vital Signs Vital signs: Vital Signs Temp 98.5 F 04/14/23 08:00 Pulse 77 04/14/23 10:00 Resp 18 04/14/23 10:00 BP 160/76 04/14/23 10:00 Pulse Ox 95 04/14/23 10:00 FiO2 Intake & Output 04/13/23 04/14/23 04/14/23 18:59 06:59 18:59 Intake Total 875 1140 325 Output Total 2930 870 700 Balance -2054 270 -375 Weight 78.199 kg Intake: IV 675 900 225 Sodium Chloride 0.9% 1, 675 900 225 000 ml @ 75 mls/hr IV . [id number] ELOISA Rx#:[id number] Intake, IV Titration 200 100 Amount Potassium Chloride 10 meq 100 In Water For Injection 1 100ml.bag @ 100 mls/hr IVPB Q1H ELOISA Rx#: [id number] Potassium Chloride 10 meq 200 In Water For Injection 1 100ml.bag @ 100 mls/hr IVPB Q1HR ELOISA Rx#: [id number] Oral 240 Output: Urine 2930 870 700 Uretheral (Saab) 1300 Other: Voiding Method External Catheter External Catheter External Catheter - Exam No acute distress, oriented 3. Currently on room air. No respiratory issues. HEENT examination is grossly unremarkable. Left facial droop. Neck supple. Full range of motion. No adenopathy thyromegaly or neck vein distention. Cardiovascular examination reveals regular rhythm rate. S1-S2 normal. No S3 or S4. No discernible murmur noted. Heart rate 77 bpm. Lungs reveal clear breath sounds. Breath sounds are equal bilaterally. No adventitious lung sounds including wheezes rhonchi or crackles. Room air saturation 95%. Abdomen soft bowel sounds are heard. No masses or tenderness. Extremities are intact. No cyanosis clubbing or edema. Skin is without rash or lesion. Neurologic examination reveals weakness of the left side of the body, left upper extremity, greater than the left lower extremity. - Labs CBC & Chem 7: 04/14/23 04:29 04/14/23 04:29 Labs: Abnormal Lab Results - Last 24 Hours (Table) 04/14/23 Range/Units 04:29 Glucose 110 H (74-99) mg/dL Assessment and Plan Assessment: Acute ischemic CVA, status post TPA infusion, without resolution of left-sided hemiplegia. Benign essential hypertension. History of fall. GERD without esophagitis. Plan: Plan dated 04/14/2023. The patient remains in the intensive care unit. She's receiving saline at 75 mL an hour. The patient received TPA on April 12. The patient can move her left l ower extremity somewhat, but it still very weak. She has almost no movement, and her left upper extremity. She still has a left facial droop, and garbled speech. Labs, x-rays, medications are reviewed. Prognosis is guarded. Recent brain MRI showed significant changes, in the putamen and sprague radiata on the right side, consistent with an acute CVA. Prognosis is guarded. Time with Patient: Greater than 30
[2023-04-14] MEDS: CLOPIDOGREL 75 MG TAB PO SCH (14:15)
--- NOTE | 2023-04-14 16:42 | P.CONS ---
History of Present Illness - Reason for Consult Consult date: 04/14/23 - Chief Complaint CVA, left hemiparesis - History of Present Illness Ms Lashanda Hernandez is a 72 y/o female who lives with spouse,adult children and grandchildren in a multistory home with 3 JESSIE. Patient's bed and bath are on the main floor. Prior to admission, patient was independent with mobility and ADLs w/o assistive device. She drove. She has family support on discharge. Patient presented to the hospital on 04/12/23 due to weakness and concern for CVA. She has a history of hypertension. In the morning she felt weird, felt weak all over and the knees felt "odd". The symptoms resolved. At 6 PM, she was sitting in the couch, when she tried to get up and could not. After the third attempt, when she was able to get up, she fell on the floor. She told her daughter to take her to the hospital. At around 8 PM, she was on her feet, getting ready to go to the hospital, when she suddenly started leaning to the left and she fell down. At that time she developed slurred speech and left- sided weakness. EMS was called. Patient and family deny her hitting her head during these previous falls and deny her being on the blood thinners. When EMS evaluated, patient was alert and oriented 4 with GCS of 15. Patient had left sided facial droop and left sided weakness. EKG showed sinus rhythm. Patient denied any chest pain, headache or dizziness or nausea. 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 Blood test shows normal CBC, PT/PTT, normal CMP with mildly elevated ALT 36. Troponin negative. CT head normal. Chest x-ray revealed no acute cardiopulmonary process. EKG shows ectopic atrial rhythm. Left atrial enlargement. Incomplete right bundle branch block. Left elbow x-ray showed no fracture or dislocation. In the ED, her NIH stroke scale reported was 13. Stroke code alteplase was activated at 8:50 PM. ED staff discussed case with neuro intervention/stroke neurologist. Apparently patient w hile in the CT scanner, improved and the symptoms completely resolved. She was considered not a candidate for TPA, but the symptoms reappeared and a second stroke code was activated at 9:35 PM. Patient then received TPA bolus dose at 9:48 PM. Patient improved significantly after the TPA, but at midnight, the symptoms reappeared, and she became flaccid on the left side. Neurology was consulted. MRI completed, ischemia to Right putamen and sprague radiata. 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, following commands, 100% intelligibility, dysphagia 3 no straws 04/14/23: Review of Systems reviewed, negative unless mentioned above in HPI Past Medical History Past Medical History: Hypertension Additional Past Medical History / Comment(s): glaucoma History of Any Multi-Drug Resistant Organisms: None Reported Past Surgical History: Cholecystectomy Past Psychological History: No Psychological Hx Reported Smoking Status: Never smoker Medications and Allergies Home Medications Medication Instructions Recorded Confirmed Type Dorzolamide/Timolol/Pf 1 drop BOTH EYES BID 04/12/23 04/12/23 History [Dorzolamide 2%-Timolol 0.5%] Famotidine [Pepcid] 20 mg PO DAILY PRN 04/12/23 04/12/23 History Fexofenadine HCl [Pili Allergy] 180 mg PO HS 04/12/23 04/12/23 History Latanoprost [Latanoprost 0.005%] 1 drop BOTH EYES HS 04/12/23 04/12/23 History Pseudoephedrine 12Hr [Sudafed 12 120 mg PO Q12HR PRN 04/12/23 04/12/23 History Hour] amLODIPine [Norvasc] 10 mg PO DAILY 04/12/23 04/12/23 History Allergies Allergy/AdvReac Type Severity Reaction Status Date / Time No Known Allergies Allergy Verified 04/12/23 22:10 Physical Exam Vitals: Vital Signs Temp Pulse Resp BP Pulse Ox 04/14/23 16:00 97.9 F 84 22 150/72 95 04/14/23 15:00 74 14 133/59 94 L 04/14/23 14:00 67 15 127/70 93 L 04/14/23 13:00 78 12 145/79 94 L 04/14/23 12:00 78 14 142/74 94 L 04/14/23 11:00 64 24 149/82 94 L 04/14/23 10:00 77 18 160/76 95 04/14/23 09:00 90 11 L 145/73 95 04/14/23 08:00 98.5 F 79 18 144/90 95 04/14/23 07:00 78 9 L 137/67 95 04/14/23 06:00 63 5 L 143/67 95 04/14/23 05:00 70 13 136/60 94 L 04/14/23 04:00 61 15 148/76 93 L 04/14/23 03:00 64 11 L 106/61 92 L 04/14/23 02:00 64 12 137/71 92 L 04/14/23 01:00 75 7 L 135/69 92 L 04/14/23 00:10 77 4 L 135/69 91 L 04/14/23 00:00 98.1 F 77 10 L 152/71 91 L 04/13/23 23:00 75 12 133/59 94 L 04/13/23 22:00 73 13 131/58 90 L 04/13/23 21:00 97 13 133/64 95 04/13/23 20:00 99.9 F H 75 9 L 168/72 93 L 04/13/23 19:00 99 18 155/77 96 04/13/23 18:00 15 147/77 94 L 04/13/23 17:00 143/67 Intake and Output 04/14/23 04/14/23 04/14/23 06:59 14:59 22:59 Intake Total 600 525 Output Total 500 1450 200 Balance 100 -925 -200 Intake: IV 600 225 Sodium Chloride 0.9% 1, 600 225 000 ml @ 75 mls/hr IV . [id number] [facility] Rx#:[id number] Intake, IV Titration 100 Amount Potassium Chloride 10 meq 100 In Water For Injection 1 100ml.bag @ 100 mls/hr IVPB Q1H [facility] Rx#: [id number] Oral 200 Output: Urine 500 1450 200 Other: Voiding Method External Catheter Indwelling Catheter Weight 78.199 kg General: WDWN, female, NAD Head: Normocephalic, atraumatic. Eyes: Symmetric Ears: Symmetric. Hearing within normal limits. Mouth: Clear. Neck: Supple. Cardiac: Regular rate and rhythm. Calves supple, non tender, no edema Lungs: Breathing comfortably on RA. Chest symmetric. Abdomen: Soft, nontender. Extremities: Arthritic changes consistent with age. Neurological: Alert and oriented x 4. Speech is mildy dysarthric, fluent without paraphasic errors Cranial nerves: Left central VII deficit Sensation: decreased on left side Musculoskeletal: ROM WFL EXCEPT: MMT UE Sh Abd EE EF FABD WE HG Right 5 5 5 5 5 5 Left Brunstromm II/VII MMT LE HF KE DF EHL Right 5 5 5 5 Left Brunstrom III/VII Reflexes Biceps Triceps Brachioradialis Patella Achilles Babinski Hoffmans Right 3 3 3 3 2 negative equiv Left 2 2 2 2 2 flexor Skin: Skin intact where visible to head, neck, and bilateral upper and lower extremities Psych: Calm, cooperative I did not test transfers or gait. Results CBC & Chem 7: 04/14/23 04:29 04/14/23 04:29 Labs: Abnormal Lab Results - Last 24 Hours (Table) 04/14/23 Range/Units 04:29 Glucose 110 H (74-99) mg/dL Assessment and Plan Assessment: # Left hemiplegia secondary to acute right putamen and sprague radiata CVA -MRI and CT reports reviewed, neurology following -ASA 325 mg QD, Statin, Plavix # Dyarthria # Dysphagia -Dysphagia 3, chopped diet no straws, 1:1 supervision aspiration precautions # Impaired gait and ADLs secondary to above #Hypertension #Hyperlipidemia # Bowel/ Bladder: Nursing to monitor and report concerns if any. -monitor for retention # Skin/wound: Skin/Wound care to follow as needed # Pain Management -defer to medical team # DVT Prophylaxis: Lovenox SQ daily # Comorbidities: glaucoma # Your medical dx and mgt Goals: SBA for mobility and ADLS both basic and advanced; increased functional mobility/strength; increased balance, safety, endurance. Improvement in medical issues through your care. Barriers: endurance, left hemiplegia, dysarthria Discharge recommendation: IPR when medically stable. Patient is highly motivated, has good family support and able to tolerate the intensity of IPR. Patient seen and examined by Dr. Wesley, note remotely prepped by Beatriz Spence PA-C
[2023-04-14] MEDS: LATANOPROST 0.005% OPHTH DROPS 2.5 ML BTL BOTH EYES SCH (20:15)
[2023-04-15] MEDS: SODIUM CHLORIDE 0.9% 1,000 ML IV SCH ×3 (02:13→21:44)
[2023-04-15 06:25] LABS: Basophils % (A) 1 %; Eosinophils # (A) 0.2 k/uL (0-0.7); Eosinophils % (A) 2 %; HCT 36.2 % (34.0-46.0); HGB 12.2 gm/dL (11.4-16.0); Lymphocytes # (A) 2.5 k/uL (1.0-4.8); Lymphocytes % (A) 28 %; MCHC 33.8 g/dL (31.0-37.0); MCV 88.8 fL (80.0-100.0); Mean Platelet Volume 8.3; Monocytes # (A) 0.6 k/uL (0-1.0); Monocytes % (A) 7 %; Neutrophils # (A) 5.5 k/uL (1.3-7.7); Neutrophils % (A) 60 %; Platelet Count 246 k/uL (150-450); RBC 4.07 m/uL (3.80-5.40); RDW 13.1 % (11.5-15.5); WBC 9.1 k/uL (3.8-10.6)
--- NOTE | 2023-04-15 06:31 | P.PN ---
Subjective Progress Note Date: 04/14/23 Patient is a pleasant 72-year-old female came in for flaccid paralysis in the left side. Patient had on and off for weakness which lasted for a few minutes and eventually had prominent weakness after TPA on the left side. CT of the head did not show any significant abnormality CT angios did not show any carotid stenosis or dissection. Patient's strength is 0/5 on left upper and lower extremity and patient has left-sided facial weakness. Patient does have history of hypertension the does not smoke and does not take any antiplatelet medications at home. Echocardiogram did not show any significant abnormality and LDL is 120. 04/14/2023 Patient is seen in follow-up continues to be in ICU with multiple medical consultations following. MRI suggestive of CVA and follow-up CT brain showing no acute hemorrhage patient is being started on aspirin and Plavix along with statin therapy. Patient continues in the ICU under close observation status post TPA administration. Patient continues to have left-sided weakness and will have inpatient rehab physicians evaluate. Social work to follow-up with discharge planning to [facility] for inpatient rehab. Patient is afebrile continues to have a left facial droop with some difficulties in chewing and is maintained on dysphagia diet chopped with superficial with meals. Patient is significantly weak and would benefit from aggressive physical therapy. Patient was independent and driving and ADLs prior to this event. Review of systems: Constitutional: No reports of fatigue, fever, or chills Cardiovascular: No reports of chest pain or palpitations Respiratory: No reports of shortness of breath or cough GI: No reports of nausea, vomiting, or diarrhea : No reports of dysuria or retention Neurovascular: reports of significant weakness of the left side with continued left facial droop All medications have been reviewed PHYSICAL EXAMINATION: GENERAL: The patient is alert and oriented x3, not in any acute distress. Well developed, well nourished. HEENT: Pupils are round and equally reacting to light. EOMI. No scleral icterus. No conjunctival pallor. Normocephalic, atraumatic. No pharyngeal erythema. No thyromegaly. CARDIOVASCULAR: S1 and S2 present. No murmurs, rubs, or gallops. PULMONARY: Chest is clear to auscultation, no wheezing or crackles. ABDOMEN: Soft, nontender, nondistended, normoactive bowel sounds. No palpable organomegaly. MUSCULOSKELETAL: No joint swelling or deformity. EXTREMITIES: No cyanosis, clubbing, or pedal edema. NEUROLOGICAL: Left-sided paralysis as mentioned above SKIN: No rashes. Assessment: -Acute stroke involving perforating branches of middle cerebral artery territory and probably in genu of the internal capsule. MRI confirmed CVA. Repeat CT negative for hemorrhage -Hypertension, allow permissive hypertension -hyperlipidemia -Glaucoma: Patient will be resumed on home medications -DVT prophylaxis: Lovenox -GI prophylaxis -Full code Plan: She will continue the ICU with close monitoring as patient is status post TPA administration. MRI confirmed CVA and repeat CT imaging of the brain showing no hemorrhage and is being started on high-dose aspirin and Plavix along with statin therapy Continue telemetry monitoring as well as vital signs closely Continue dysphasia chopped diet and supervision with meals as patient continues to have facial palsy Recommend PT/OT therapy daily and will have inpatient rehab at [facility] physicians evaluate for possible inpatient rehab on discharge. Patient was completely independent and driving prior to this event and would benefit from aggressive physical therapy. Family is agreeable and consult was placed Will discuss further with consultations about discharge planning to inpatient rehab possibly in the next 24-48 hours The impression and plan of care has been dictated by Jenna Magallanes, Nurse Practitioner as directed. Dr. Yelena MD I have performed a history and examination and MDM of this patient, discussed the same with the dictator, and agree with the dictator's assessment and plan as written ,documented as a scribe. Based on total visit time, I have performed more than 50% of the visit. Objective - Vital Signs Vital signs: Vital Signs Temp 98.5 F 04/14/23 08:00 Pulse 79 04/14/23 08:00 Resp 15 04/14/23 08:00 BP 144/90 04/14/23 08:00 Pulse Ox 94 L 04/14/23 08:00 FiO2 Intake & Output 04/13/23 04/14/23 04/14/23 18:59 06:59 18:59 Intake Total 875 1140 225 Output Total 2930 870 525 Balance -2054 270 -300 Weight 78.199 kg Intake: IV 675 900 225 Sodium Chloride 0.9% 1, 675 900 225 000 ml @ 75 mls/hr IV . [id number] [facility] Rx#:[id number] Intake, IV Titration 200 Amount Potassium Chloride 10 meq 200 In Water For Injection 1 100ml.bag @ 100 mls/hr IVPB Q1HR [facility] Rx#: [id number] Oral 240 Output: Urine 2930 870 525 Uretheral (Saab) 1300 Other: Voiding Method External Catheter External Catheter - Labs CBC & Chem 7: 04/14/23 04:29 04/14/23 04:29 Labs: Abnormal Lab Results - Last 24 Hours (Table) 04/14/23 Range/Units 04:29 Glucose 110 H (74-99) mg/dL
[2023-04-15 06:37] LABS: African American GFR (CKD) >90 (>60 ml/min/1.73 sqM); Anion Gap 7 mmol/L; Blood Urea Nitrogen 10 mg/dL (7-17); Calcium 8.4 mg/dL (8.4-10.2); Carbon Dioxide 24 mmol/L (22-30); Chloride 107 mmol/L (98-107); Glucose 98 mg/dL (74-99); Non-African American GFR(CKD) >90 (>60 ml/min/1.73 sqM); Potassium 3.6 mmol/L (3.5-5.1); Sodium 138 mmol/L (137-145)
[2023-04-15] MEDS: POTASSIUM CHLORIDE 10 MEQ in WATER FOR INJECTION 1 100ML.BAG IVPB SCH ×2 (08:29→10:09)
[2023-04-15] MEDS: DORZOLAMIDE-TIMOLOL 2.23%/0.68 10ML BTL BOTH EYES SCH ×2 (08:36→20:11)
[2023-04-15] MEDS: PANTOPRAZOLE 40 MG/10 ML VIAL IV SCH (09:11)
[2023-04-15] MEDS: ENOXAPARIN 40 MG/0.4 ML SYRINGE SQ SCH (09:12)
--- NOTE | 2023-04-15 10:18 | P.PN ---
Subjective Progress Note Date: 04/14/23 Patient was seen for a follow-up. Patient states she is feeling better. She is able to move her left leg better. Left arm is still flaccid. Her speech has improved. Patient's daughter and sister were present today. Reviewed MRI of the brain with them on the computer. Objective - Vital Signs Vital signs: Vital Signs Temp 98.5 F 04/14/23 08:00 Pulse 78 04/14/23 12:00 Resp 13 04/14/23 12:00 BP 142/74 04/14/23 12:00 Pulse Ox 95 04/14/23 12:00 FiO2 Intake & Output 04/13/23 04/14/23 04/14/23 18:59 06:59 18:59 Intake Total 875 1140 525 Output Total 2930 870 1225 Balance -2055 270 -700 Weight 78.199 kg Intake: IV 675 900 225 Sodium Chloride 0.9% 1, 675 900 225 000 ml @ 75 mls/hr IV . [id number] [facility] Rx#:[id number] Intake, IV Titration 200 100 Amount Potassium Chloride 10 meq 100 In Water For Injection 1 100ml.bag @ 100 mls/hr IVPB Q1H [facility] Rx#: [id number] Potassium Chloride 10 meq 200 In Water For Injection 1 100ml.bag @ 100 mls/hr IVPB Q1HR [facility] Rx#: [id number] Oral 240 200 Output: Urine 2930 870 1225 Uretheral (Saab) 1300 Other: Voiding Method External Catheter External Catheter External Catheter - Exam Patient's mental status, speech and language functions are normal. Her speech is much more clear, hardly any dysarthria. No aphasia. Her left facial weakness also appears to have improved. Her left arm is completely flaccid with no movement distally or proximally. Her left hip flexion is 3+(able to push her leg off the bed up about 30, but not able to maintain that position and brings it down), ankle dorsiflexion 1. Sensory to touch is decreased in the entire left side of the body. No ataxia for [id number] and [id number] with the right side, but cannot check on the left. Patient has a Babinski on the left. - Labs CBC & Chem 7: 04/15/23 06:05 04/15/23 06:05 Labs: Abnormal Lab Results - Last 24 Hours (Table) 04/14/23 Range/Units 04:29 Glucose 110 H (74-99) mg/dL Assessment and Plan Assessment: * Acute ischemic stroke, with left hemiplegia. Patient has presented with recurrent TIAs in 24 hours, then had an acute stroke for which patient received TPA in a timely manner in the ED. Unfortunately post-TPA, overnight the hemiplegia got worse again. Mechanism of stroke possible from lacunar stroke involving internal capsule, or basis pontis. Rule out embolic source. * Hypertension * Hyperlipidemia Plan: * MRI of the brain without contrast revealed diffusion weighted imaging demo nstrated abnormal increased signal extending from the right putamen into the right sprague radiata, compatible with acute CVA. I personally reviewed MRI, agree with the findings. Also reviewed MRI films on the computer with patient's family on their request. * 2-D echo revealed normal left ventricular size and systolic function with EF reported 55-60%. Mild MR, AR. Left atrial size is normal. * CTA head and neck showed: No evidence of dissection of the cervical internal carotid arteries or vertebral arteries or any evidence of significant stenosis of the carotid bifurcations. No evidence of intracranial high-grade stenosis or intracranial aneurysm. * Patient does not have significant stroke risk factors. Her stroke appears somewhat embolic in nature. Rule out cardiac source. Recommend [facility] for further evaluation. Discussed with the patient and family and agreed. * Patient apparently had an event monitor placed few days prior to her stroke because of patient's palpitations. Recommend patient resume event monitor supply controller at the time of discharge. * Fasting a.m. lipid panel cholesterol 170, LDL 120, HDL 35 and triglycerides 71. Agree with starting high intensity statins with Lipitor 80 mg. * Hemoglobin A1c 5.7 * Permissive hypertension for next 24 hours. Blood pressure running around 125- 160 systolic. Patient not on any antihypertensives. * Close neuro checks as per protocol. * Telemetry monitoring rule out any arrhythmia * Patient started on aspirin 325 mg yesterday. As patient is showing signs of improvement, we will add Plavix 75 mg daily for 30 days as well. Recommend DAPT for 30 days, then stop Plavix and continue aspirin indefinitely. Start Pepcid 20 mg twice a day for gastric ulcer prophylaxis. * PT, OT, speech therapy. * DVT prophylaxis: Lovenox 40 mg subcu daily * Patient to be considered for transfer to inpatient rehab.
--- NOTE | 2023-04-15 10:18 | P.PN ---
Subjective Progress Note Date: 04/15/23 Principal diagnosis: CVA. I am seeing this patient in new consultation today 04/13/2023 following an acute CVA status post infusion of TPA. Patient is a 72-year-old white female with past medical history significant for hypertension. She is a never smoker. Patient and her daughters are at the bedside. They report left-sided weakness, facial droop, and slurred speech starting around 6:30 yesterday evening. The patient reportedly did have 2 falls at home. EMS was immediately alerted, and the patient was transferred to the emergency department where a code stroke was initiated. Initial NIH score was 13. Brain CT showed no acute intracranial process. CTA of the head and neck showed no evidence of significant stenosis or dissection. The patient did receive TPA at 2147 last night. Symptoms reportedly transiently improved, and then deteriorated again. Patient is currently sitting up in bed, on room air, in no acute distress. She still has significant left- sided hemiplegia. Left arm is rigid without effort against gravity. Left leg also has no effort against gravity. No ataxia. She has obvious left-sided facial droop and mild dysarthria. No visual disturbances. BP is slightly hypertensive. Patient does have a cardiac event monitor on, which was reported ly ordered by her primary care provider Dr. Aishwarya Pabon. Heart rhythm is currently normal sinus on the bedside monitor. CBC and BMP on arrival were unremarkable. Coag profile unremarkable. Troponin less than 0.012. Neurology consult was obtained, and a 24-hour follow-up brain CT is ordered. Patient will be monitored in the intensive care unit. Progress note dated 04/14/2023. 72-year-old female seen today in room 255. She received TPA on April 12 for a CVA. She presented with left-sided weakness. She's currently on room air. She's getting saline at 75 mL an hour. A recent MRI showed changes in the right putamen and sprague radiata, consistent with an acute CVA. The patient is able to move her left leg partially. She has a dense plegia of her left upper extremity. She also has a left facial droop, and her speech is somewhat garbled. White count 9.0, hemoglobin 12.9, hematocrit 37.6, and platelet count is 258,000. Sodium 137, potassium 3.9, chlorides 104, CO2 25, anion gap 8, BUN 7, and creatinine 0.56. Brain MRI and brain CT have been reviewed. Progress note dated 04/15/2023. 72-year-old female seen today in room 255. She received TPA on April 12, for a CVA. She presented with left-sided weakness. Currently, she is on room air. She's receiving saline at 75 mL an hour. The patient apparently scheduled for transesophageal echocardiogram. Her left lower extremity, moves reasonably well. She seems to have a flaccid left upper extremity. White count 9.1, hemoglobin 12.2, hematocrit 36.2, and platelet count is normal. Sodium, potassium, chloride, CO2, anion gap, BUN, and creatinine, are all normal. Calcium is also normal. Objective - Vital Signs Vital signs: Vital Signs Temp 97.9 F 04/15/23 08:00 Pulse 80 04/15/23 10:00 Resp 12 04/15/23 10:00 BP 149/72 04/15/23 10:00 Pulse Ox 95 04/15/23 10:00 FiO2 Intake & Output 04/14/23 04/15/23 04/15/23 18:59 06:59 18:59 Intake Total 525 525 275 Output Total 1690 380 525 Balance -1165 145 -250 Weight 78.9 kg Intake: IV 225 525 75 Sodium Chloride 0.9% 1, 225 525 75 000 ml @ 75 mls/hr IV . [id number] [facility] Rx#:[id number] Intake, IV Titration 100 200 Amount Potassium Chloride 10 meq 100 In Water For Injection 1 100ml.bag @ 100 mls/hr IVPB Q1H [facility] Rx#: [id number] Potassium Chloride 10 meq 200 In Water For Injection 1 100ml.bag @ 100 mls/hr IVPB Q1H [facility] Rx#: [id number] Oral 200 Output: Urine 1690 380 525 Other: Voiding Method Indwelling Catheter Indwelling Catheter Indwelling Catheter - Exam No acute distress, oriented 3. Currently on room air. No respiratory issues. HEENT examination is grossly unremarkable. Left facial droop. Neck supple. Full range of motion. No adenopathy thyromegaly or neck vein distention. Cardiovascular examination reveals regular rhythm rate. S1-S2 normal. No S3 or S4. No discernible murmur noted. Heart rate 80 bpm. Lungs reveal clear breath sounds. Breath sounds are equal bilaterally. No adventitious lung sounds including wheezes rhonchi or crackles. Room air saturation 97 %. Abdomen soft bowel sounds are heard. No masses or tenderness. Extremities are intact. No cyanosis clubbing or edema. Skin is without rash or lesion. Neurologic examination reveals weakness of the left side of the body, left upper extremity, greater than the left lower extremity. - Labs CBC & Chem 7: 04/15/23 06:05 04/15/23 06:05 Assessment and Plan Assessment: Acute ischemic right-sided CVA, status post TPA infusion, without resolution of left-sided hemiplegia. Benign essential hypertension. History of fall. GERD without esophagitis. Plan: Plan dated 04/14/2023. The patient remains in the intensive care unit. She's receiving saline at 75 mL an hour. The patient received TPA on April 12. The patient can move her left lower extremity somewhat, but it still very weak. She has almost no movement, and her left upper extremity. She still has a left facial droop, and garbled speech. Labs, x-rays, medications are reviewed. Prognosis is guarded. Recent brain MRI showed significant changes, in the putamen and sprague radiata on the right side, consistent with an acute CVA. Prognosis is guarded. Plan dated 04/15/2023. The patient appears to be relatively stable, and could be transferred out of the intensive care unit. The patient's not receiving any supplemental oxygen. The patient's getting saline at 75 mL an hour. The patient continues to struggle, and moving her left upper extremity. The left lower extremity, seems to move much better. We will continue to follow make recommendations along the way. Labs, x-rays, and medications are reviewed. The patient is scheduled for transesophageal echocardiogram. Prognosis is guarded. Time with Patient: Less than 30
[2023-04-15] MEDS ORDERED: MIDAZOLAM 1 MG/ML 5 ML VIAL IV STA (10:59)
[2023-04-15] MEDS ORDERED: fentaNYL (PF) 50 MCG/ML 2 ML AMP IVP PRN (11:02)
--- NOTE | 2023-04-15 13:04 | CONS ---
CONSULTATION HISTORY OF PRESENT ILLNESS: This lady has a history of hypertension and came into the hospital with what seems to be an acute CVA with left-sided weakness, and received thrombolytic therapy in the form of tPA, showed some improvement, but again has a decreased neurological function and is unable to move left upper extremity. She is able to move left lower extremity. She had an acute stroke that occurred on the , Wednesday in the night. I am seeing her mainly because of the request for transesophageal echo since transthoracic echo did not reveal good images and also a bubble study was not possible. She has a history of hypertension and apparently her blood pressure was well controlled. Please review the chart for other information. She is resting comfortably without symptoms. PAST MEDICAL HISTORY: 1. Hypertension. 2. Glaucoma and a history of cholecystectomy. SOCIAL HISTORY: The patient is not a smoker. HOME MEDICATIONS: Her home medications include amlodipine 10 mg daily and she also takes pseudoephedrine and some timolol eyedrops for glaucoma. ALLERGIES: None. Transthoracic echo actually revealed good systolic function, but Doppler exam was suboptimal. A bubble study was not possible. She does not have any significant pulmonary hypertension. PHYSICAL EXAMINATION: VITAL SIGNS: Blood pressure is 160/80, pulse rate is 80 per minute, regular. HEENT: Unremarkable. Fundus was not examined by me. NECK: Supple. No JVD. I do not hear a carotid bruit. HEART: Reveals S1, S2 heard normally. There is a short systolic murmur at the base. Second heart sound is preserved. LUNGS: Clear. ABDOMEN: Soft, nontender. EXTREMITIES: Lower extremities reveal palpable pulses. CENTRAL NERVOUS SYSTEM: Reveals flaccid left upper extremity with no movement. Left lower extremity has decreased strength. IMAGING: EKG reveals sinus mechanism, LVH by voltage. No acute changes. Incomplete right bundle branch block pattern. IMPRESSION: 1. Acute cerebrovascular accident. Urology requested transesophageal echo. 2. Hypertension. RECOMMENDATIONS: I will request Dr. Valderrama to perform transesophageal echo today at bedside. Discussed my thoughts in detail with the patient. Thank you very much for the consult. MMODL / IJN: [id number] /
[2023-04-15] MEDS: ATORVASTATIN 80 MG TAB PO SCH (13:55)
[2023-04-15] MEDS: CLOPIDOGREL 75 MG TAB PO SCH (13:55)
[2023-04-15] MEDS: ASPIRIN 325 MG TAB PO SCH (13:55)
[2023-04-15] MEDS: FAMOTIDINE 20 MG TAB PO SCH ×2 (13:55→20:10)
--- NOTE | 2023-04-15 14:46 | P.TEE ---
Date of Procedure: 04/15/23 Procedure(s) Performed: Moderate conscious sedation ODESSA with bubble study Description of Procedure(s): After explaining the procedure to the patient, the potential risk and complications, consent was obtained. Patients blood pressure, heart rate and O2 saturation were monitored. The throat was sprayed with Benzocaine. Patient received 1 mg versed and 50 mcg Fentanyl intravenously. After attaining adequate sedation, ODESSA probe was introduced into the esophagus without immediate complication. Patient's HR, blood pressure, oxygen saturation was monitored throughout the procedure. There was no complication with moderate conscious sedation and tolerated it well. Total sedation time 25mins. Findings: Left atrium: Normal size. No evidence of thrombus or mass. Normal Interatrial septum, no evidence of ASD or PFO. No right to left shunt on bubble study. Left atrial appendage: Normal size, no thrombus or mass. Normal Doppler velocities Right ventricle: Normal RA size. Left Ventricle: Normal size. Mild increased concentric wall thickness. Normal global systolic function. Right ventricle: Normal overall size. Mitral valve: Mild thickening of mitral valve leaflets. No stenosis. Mild regurgitation. No mass or vegetation mitral valve Aortic valve: Mild calcification, tricuspid. No mass or thrombus on valve. Mild aortic regurgitation. Tricuspid valve: Not well seen. Pulmonic valve: Not well seen. Aortic root and aorta: Mild calcification and intimal thickening. No evidence of atheroma in ascending aorta, aortic arch or descending aorta. Conclusion: 1. Negative bubble study with no right to left shunting. Intact Interatrial septum with no evidence of PFO. 2. No thrombus seen in left circulatory system 3. No bulky calcification or atheroma on aortic valve, or ascending aorta. Gregory Morales MD
[2023-04-15] MEDS: LATANOPROST 0.005% OPHTH DROPS 2.5 ML BTL BOTH EYES SCH (20:10)
[2023-04-15] MEDS ORDERED: LOSARTAN 50 MG TAB PO SCH (21:00)
[2023-04-15] MEDS ORDERED: IBUPROFEN 400 MG TAB PO PRN (21:21)
[2023-04-15] MEDS ORDERED: IBUPROFEN 400 MG TAB PO STA (21:49)
--- NOTE | 2023-04-16 05:56 | P.PN ---
Subjective Progress Note Date: 04/15/23 Patient is a pleasant 72-year-old female came in for flaccid paralysis in the left side. Patient had on and off for weakness which lasted for a few minutes and eventually had prominent weakness after TPA on the left side. CT of the head did not show any significant abnormality CT angios did not show any carotid stenosis or dissection. Patient's strength is 0/5 on left upper and lower extremity and patient has left-sided facial weakness. Patient does have history of hypertension the does not smoke and does not take any antiplatelet medications at home. Echocardiogram did not show any significant abnormality and LDL is 120. 04/14/2023 Patient is seen in follow-up continues to be in ICU with multiple medical consultations following. MRI suggestive of CVA and follow-up CT brain showing no acute hemorrhage patient is being started on aspirin and Plavix along with statin therapy. Patient continues in the ICU under close observation status post TPA administration. Patient continues to have left-sided weakness and will have inpatient rehab physicians evaluate. Social work to follow-up with discharge planning to [facility] for inpatient rehab. Patient is afebrile continues to have a left facial droop with some difficulties in chewing and is maintained on dysphagia diet chopped with superficial with meals. Patient is significantly weak and would benefit from aggressive physical therapy. Patient was independent and driving and ADLs prior to this event. 04/15/2023 Patient is seen in follow-up today currently continues in the ICU and is a grade awaiting a bed availability. Multiple medical consultations including cardiology following with plans for ODESSA today which is currently pending. Patient continues to have left-sided weakness and would recommend physical therapy daily. Discuss with neurology about discharge planning and currently awaiting ODESSA. Patient is continued on aspirin and Plavix along with statin therapy. Patient afebrile with no reported chest pain or shortness of breath. Patient has been accepted at [facility] inpatient rehab and will await ODESSA report with possible discharge in the next 24 hours. Review of systems: Constitutional: No reports of fatigue, fever, or chills Cardiovascular: No reports of chest pain or palpitations Respiratory: No reports of shortness of breath or cough GI: No reports of nausea, vomiting, or diarrhea : No reports of dysuria or retention Neurovascular: reports of significant weakness of the left side with continued left facial droop All medications have been reviewed PHYSICAL EXAMINATION: GENERAL: The patient is alert and oriented x3, not in any acute distress. Well developed, well nourished. HEENT: Pupils are round and equally reacting to light. EOMI. No scleral icterus. No conjunctival pallor. Normocephalic, atraumatic. No pharyngeal erythema. No thyromegaly. CARDIOVASCULAR: S1 and S2 present. No murmurs, rubs, or gallops. PULMONARY: Chest is clear to auscultation, no wheezing or crackles. ABDOMEN: Soft, nontender, nondistended, normoactive bowel sounds. No palpable or ganomegaly. MUSCULOSKELETAL: No joint swelling or deformity. EXTREMITIES: No cyanosis, clubbing, or pedal edema. NEUROLOGICAL: Left-sided paralysis as mentioned above SKIN: No rashes. Assessment: -Acute stroke involving perforating branches of middle cerebral artery territory and probably in genu of the internal capsule. MRI confirmed CVA. Repeat CT negative for hemorrhage -Hypertension, allow permissive hypertension -hyperlipidemia -Glaucoma: Patient will be resumed on home medications -DVT prophylaxis: Lovenox -GI prophylaxis -Full code Plan: She will downgraded from the ICU once a bed becomes available Patient is status post TPA administration. MRI confirmed CVA and repeat CT imaging of the brain showing no hemorrhage and is being started on high-dose aspirin and Plavix along with statin therapy Currently awaiting ODESSA with cardiology, discuss with neurology and awaiting ODESSA for clearance Continue telemetry monitoring as well as vital signs closely Continue dysphasia chopped diet and supervision with meals as patient continues to have facial palsy Recommend PT/OT therapy daily and has been accepted at inpatient rehab at [facility]. Patient was completely independent and driving prior to this event and would benefit from aggressive physical therapy. Family is agreeable Will discuss further with consultations about discharge planning to inpatient rehab after ODESSA with probable discharge in the next 24 hours The impression and plan of care has been dictated by Jenna Maglalanes, Nurse Practitioner as directed. Dr. Yelena MD I have performed a history and examination and MDM of this patient, discussed the same with the dictator, and agree with the dictator's assessment and plan as written ,documented as a scribe. Based on total visit time, I have performed more than 50% of the visit. Objective - Vital Signs Vital signs: Vital Signs Temp 97.9 F 04/15/23 08:00 Pulse 70 07/27/23 08:00 Resp 14 04/15/23 08:00 BP 145/70 04/15/23 08:00 Pulse Ox 96 04/15/23 08:27 FiO2 Intake & Output 04/14/23 04/15/23 04/15/23 18:59 06:59 18:59 Intake Total 525 525 175 Output Total 1690 380 175 Balance -1165 145 0 Weight 78.9 kg Intake: IV 225 525 75 Sodium Chloride 0.9% 1 225 525 75 000 ml @ 75 mls/hr IV . [id number] [facility] Rx#:[id number] Intake, IV Titration 100 100 Amount Potassium Chloride 10 meq 100 In Water For Injection 1 100ml.bag @ 100 mls/hr IVPB Q1H [facility] Rx#: [id number] Potassium Chloride 10 meq 100 In Water For Injection 1 100ml.bag @ 100 mls/hr IVPB Q1H [facility] Rx#: [id number] Oral 200 Output: Urine 1690 380 175 Other: Voiding Method Indwelling Catheter Indwelling Catheter - Labs CBC & Chem 7: 04/15/23 06:05 04/15/23 06:05
[2023-04-16 07:12] VITALS: RESP 18
[2023-04-16] MEDS ORDERED: ASPIRIN 81 MG PO SCH (09:00)
[2023-04-16] MEDS: ATORVASTATIN 80 MG TAB PO SCH (09:45)
[2023-04-16] MEDS: ENOXAPARIN 40 MG/0.4 ML SYRINGE SQ SCH (09:45)
[2023-04-16] MEDS: PANTOPRAZOLE 40 MG/10 ML VIAL IV SCH (09:45)
[2023-04-16] MEDS: FAMOTIDINE 20 MG TAB PO SCH (09:45)
[2023-04-16] MEDS: CLOPIDOGREL 75 MG TAB PO SCH (09:45)
[2023-04-16] MEDS: DORZOLAMIDE-TIMOLOL 2.23%/0.68 10ML BTL BOTH EYES SCH (09:46)
[2023-04-16] MEDS: SODIUM CHLORIDE 0.9% 1,000 ML IV SCH (10:12)
--- NOTE | 2023-04-16 10:12 | P.PN ---
Subjective Progress Note Date: 04/16/23 History of present illness: This is a 72 year old female who presented to hospital with acute CVA with his tory of hypertension. Patient is status post thrombolytic therapy in the form of TPA. She does not follow with a clinical sales consultant. Yesterday she underwent a ODESSA which revealed no cardiac source for stroke. Patient is seen today in follow- up. She continues to have weakness in the left arm but states the left leg is getting some improvement. Blood pressure 128/65, heart rate in the 70s, pulse ox 96%, afebrile. No repeat labs noted today. Physical examination: Gen: This is a 72-year-old female. Resting in bed and appears to be in no acute distress VS: reviewed HEENT: Head is atraumatic, normocephalic. Pupils equal, round. Sclerae is anicteric. NECK: Supple. No JVD. . LUNGS: Clear to auscultation. No wheezes or rhonchi. No intercostal retractions. HEART: Regular rate and rhythm. Systolic murmur. ABDOMEN: Soft EXTREMITIES: No pedal edema. Dorsalis pedis palpable bilaterally. NEUROLOGICAL: Patient is awake, alert and oriented x3. Left-sided weakness Assessment: Acute CVA Hypertension Plan: Continue antihypertensive medications Patient is cleared for discharge from cardiology. Cardiology will follow on an as-needed basis. Please reconsult if any new concerns. Thank you kindly for this consultation. Nurse practitioner note has been reviewed, I agree with documented findings and plan of care. Patient was seen and examined. Objective - Vital Signs Vital signs: Vital Signs Temp 97.9 F 04/16/23 07:05 Pulse 73 04/16/23 07:05 Resp 18 04/16/23 07:05 BP 128/65 04/16/23 07:05 Pulse Ox 96 04/16/23 07:05 FiO2 Intake & Output 04/15/23 04/16/23 04/16/23 18:59 06:59 18:59 Intake Total 650 665 Output Total 915 825 Balance -265 -160 Intake: IV 450 75 Sodium Chloride 0.9% 1, 150 000 ml @ 75 mls/hr IV . [id number] [facility] Rx#:[id number] Sodium Chloride 0.9% 1, 300 75 000 ml @ 75 mls/hr IV . [id number] [facility] Rx#:[id number] Intake, IV Titration 200 Amount Potassium Chloride 10 meq 200 In Water For Injection 1 100ml.bag @ 100 mls/hr IVPB Q1H [facility] Rx#: [id number] Oral 590 Output: Urine 915 825 Other: Voiding Method Indwelling Catheter Indwelling Catheter - Labs CBC & Chem 7: 04/15/23 06:05 04/15/23 06:05
--- NOTE | 2023-04-16 11:31 | P.PN ---
Subjective Progress Note Date: 04/16/23 I am seeing this patient in new consultation today 04/13/2023 following an acute CVA status post infusion of TPA. Patient is a 72-year-old white female with past medical history significant for hypertension. She is a never smoker. Patient and her daughters are at the bedside. They report left-sided weakness, facial droop, and slurred speech starting around 6:30 yesterday evening. The patient reportedly did have 2 falls at home. EMS was immediately alerted, and the patient was transferred to the emergency department where a code stroke was initiated. Initial NIH score was 13. Brain CT showed no acute intracranial process. CTA of the head and neck showed no evidence of significant stenosis or dissection. The patient did receive TPA at 2147 last night. Symptoms reportedly transiently improved, and then deteriorated again. Patient is currently sitting up in bed, on room air, in no acute distress. She still has significant left- sided hemiplegia. Left arm is rigid without effort against gravity. Left leg also has no effort against gravity. No ataxia. She has obvious left-sided facial droop and mild dysarthria. No visual disturbances. BP is slightly hypertensive. Patient does have a cardiac event monitor on, which was reportedly ordered by her primary care provider Dr. Aishwarya Pabon. Heart rhythm is currently normal sinus on the bedside monitor. CBC and BMP on arrival were unremarkable. Coag profile unremarkable. Troponin less than 0.012. Neurology consult was obtained, and a 24-hour follow-up brain CT is ordered. Patient will be monitored in the intensive care unit. Progress note dated 04/14/2023. 72-year-old female seen today in room 255. She received TPA on April 12 for a CVA. She presented with left-sided weakness. She's currently on room air. She's getting saline at 75 mL an hour. A recent MRI showed changes in the right putamen and sprague radiata, consistent with an acute CVA. The patient is able to move her left leg partially. She has a dense plegia of her left upper extremity. She also has a left facial droop, and her speech is somewhat g arbled. White count 9.0, hemoglobin 12.9, hematocrit 37.6, and platelet count is 258,000. Sodium 137, potassium 3.9, chlorides 104, CO2 25, anion gap 8, BUN 7, and creatinine 0.56. Brain MRI and brain CT have been reviewed. Progress note dated 04/15/2023. 72-year-old female seen today in room 255. She received TPA on April 12, for a CVA. She presented with left-sided weakness. Currently, she is on room air. She's receiving saline at 75 mL an hour. The patient apparently scheduled for transesophageal echocardiogram. Her left lower extremity, moves reasonably well. She seems to have a flaccid left upper extremity. White count 9.1, hemoglobin 12.2, hematocrit 36.2, and platelet count is normal. Sodium, potassium, chloride, CO2, anion gap, BUN, and creatinine, are all normal. Lee cium is also normal. The patient is seen today 04/16/2023 in follow-up on the regular medical floor. She is currently sitting up in bed. Awake and alert in no acute distress. She is maintaining good O2 saturations in the 90s on room air. Her speech is improving. She still has some left lower extremity weakness and flaccidity of the left upper extremity. ODESSA yesterday revealed no evidence of patent foramen ovale. No thrombus. No significant valvular disease. She is continued on aspirin and Plavix and statins. Lovenox for DVT prophylaxis. Objective - Vital Signs Vital signs: Vital Signs Temp 97.9 F 04/16/23 07:05 Pulse 73 04/16/23 07:05 Resp 18 04/16/23 07:05 BP 128/65 04/16/23 07:05 Pulse Ox 96 04/16/23 07:05 FiO2 Intake & Output 04/15/23 04/16/23 04/16/23 18:59 06:59 18:59 Intake Total 650 665 Output Total 915 825 800 Balance -265 160 800 Intake: IV 450 75 Sodium Chloride 0.9% 1, 150 000 ml @ 75 mls/hr IV . [id number] [facility] Rx#:[id number] Sodium Chloride 0.9% 1, 300 75 000 ml @ 75 mls/hr IV . [id number] [facility] Rx#:[id number] Intake, IV Titration 200 Amount Potassium Chloride 10 meq 200 In Water For Injection 1 100ml.bag @ 100 mls/hr IVPB Q1H [facility] Rx#: [id number] Oral 590 Output: Urine 915 825 800 Other: Voiding Method Indwelling Catheter Indwelling Catheter - Exam GENERAL EXAM: Alert, pleasant 72-year-old female, on room air, comfortable in no apparent distress. HEAD: Normocephalic. EYES: Normal reaction of pupils, equal size. NOSE: Clear with pink turbinates. THROAT: No erythema or exudates. NECK: No masses, no JVD. CHEST: No chest wall deformity. LUNGS: Equal air entry with no crackles, wheeze, rhonchi or dullness. CVS: S1 and S2 normal with no audible murmur, regular rhythm. ABDOMEN: No hepatosplenomegaly, normal bowel sounds, no guarding or rigidity. SPINE: No scoliosis or deformity SKIN: No rashes CENTRAL NERVOUS SYSTEM: Left sided weakness, tone is normal in all 4 extremities. EXTREMITIES: Left upper extremity weak, left arm flaccid. There is no peripheral edema. No clubbing, no cyanosis. Peripheral pulses are intact. - Labs CBC & Chem 7: 04/15/23 06:05 04/15/23 06:05 Assessment and Plan Assessment: Acute ischemic right-sided CVA, status post TPA infusion, without resolution of left-sided hemiplegia. Benign essential hypertension. History of fall. GERD without esophagitis. Plan: The patient was seen and evaluated Currently stable and on room air Medications and ODESSA results reviewed Plan is for inpatient rehabilitation at [facility] I have personally seen and examined the patient, performed the documentation and the assessment and plan as written. Number of minutes spent on the visit: 10.
[2023-04-16 13:59] VITALS: BP 133/70; PULSE 81; TEMP 99.1
--- NOTE | 2023-04-16 15:20 | P.DS ---
Providers Date of admission: 04/12/23 23:35 Expected date of discharge: 04/15/23 Attending physician: Talib Lorenzo MD Consults: 04/12/23 23:34 Consult Physician Routine Consulting Provider: Tommy Gavin Consult Reason/Comments: CVA s/p alteplase Do you want consulting provider notified?: Already Contacted Consult Physician Routine Consulting Provider: Jovanny Gusman Consult Reason/Comments: CVA Do you want consulting provider notified?: Yes, Notify in am 04/14/23 11:42 Consult Physician Routine Consulting Provider: Matthieu Wesley Consult Reason/Comments: CVA, poss inpatient rehab Do you want consulting provider notified?: Yes 04/14/23 13:25 Consult Physician Routine Consulting Provider: Koko Lowe Consult Reason/Comments: ODESSA post CVA, unable to do bubble study Do you want consulting provider notified?: Yes Primary care physician: [facility]ab[facility] Course: Final diagnosis -Acute stroke involving right putamen into the right sprague radiata MRI confirmed CVA. Repeat CT negative for hemorrhage -Hypertension -hyperlipidemia -Glaucoma history -DVT prophylaxis: Lovenox -GI prophylaxis -Full code Discharge disposition Patient is being discharged in a stable condition with [facility] . Patient will follow-up with Dr. Pabon in the outpatient setting upon discharge. Patient is to follow-up with cardiology as well as neurology outpatient as scheduled. Patient will continue on aspirin and Plavix. Total time taken is greater than 35 minutes. Hospital course This is a 72-year-old female who was recently admitted with left-sided facial paralysis with group and left-sided upper and lower extremity numbness and tingling being closely monitored. Patient was a code stroke and had TPA administration and was placed in the ICU under close observation. Patient initial CT of the head was negative although patient underwent MRI of the brain which is showing an acute stroke involving the right putamen into the right sprague radiata. Repeat CT imaging showed no intracranial hemorrhage and patient is being started on aspirin as well as Plavix and statin therapy. Patient is on subcutaneous Lovenox right now for DVT prophylaxis. Patient underwent ODESSA which was negative and has been cleared by cardiology for outpatient follow-up. Strongly recommend follow-up in the outpatient setting with cardiology as well as neurology. Patient with significant weakness and continued left side weakness was evaluated by physical therapy recommended rehab and patient has qualified and been accepted at inpatient rehab at [facility]. Please refer to the consultation notes for further HPI. Currently no reports of chest pain, shortness of breath, or palpitations. Patient is afebrile. No reports of nausea or vomiting and patient is tolerating diet. Patient will be going to [facility] inpatient rehab today. Physical exam: Gen: This is a 72-year-old female who is awake, alert and oriented 3, well- developed, well-nourished HEENT: Head is atraumatic, normocephalic. Pupils equal, round. Sclerae is anicteric. NECK: Supple. No JVD. No lymphadenopathy. No thyromegaly. LUNGS: Clear to auscultation. No wheezes or rhonchi. No intercostal retractions. HEART: Regular rate and rhythm. No murmur. ABDOMEN: Soft. Bowel sounds are present. No masses. No tenderness. EXTREMITIES: No pedal edema. No calf tenderness. left upper and lower extremity weakness left upper strength was 1-5, right was 4-5 NEUROLOGICAL: Patient is awake, alert and oriented x3. Cranial nerves 2 through 12 are grossly intact. Diffusely weak Please refer to medication reconciliation sheet for a list of medications. The impression and plan of care has been dictated by Jenna Magallanes, Nurse Practitioner as directed. Dr. Yelena MD I have performed a history and examination and MDM of this patient, discussed the same with the dictator, and agree with the dictator's assessment and plan as written ,documented as a scribe. Based on total visit time, I have performed more than 50% of the visit. Patient Condition at Discharge: Stable Plan - Discharge Summary Discharge Rx Participant: Yes New Discharge Prescriptions: New Losartan [Cozaar] 50 mg PO HS #0 tab Clopidogrel [Plavix] 75 mg PO DAILY tab Aspirin 81 mg PO DAILY tab Atorvastatin [Lipitor] 80 mg PO DAILY tab Enoxaparin [Lovenox] 40 mg SQ DAILY each Pantoprazole Sodium [Protonix] 40 mg PO DAILY #30 tab Continue Famotidine [Pepcid] 20 mg PO DAILY PRN PRN Reason: ACID REFLUX Dorzolamide/Timolol/Pf [Dorzolamide 2%-Timolol 0.5%] 1 drop BOTH EYES BID Pseudoephedrine 12Hr [Sudafed 12 Hour] 120 mg PO Q12HR PRN PRN Reason: Congestion Latanoprost [Latanoprost 0.005%] 1 drop BOTH EYES HS Fexofenadine HCl [Pili Allergy] 180 mg PO HS Discontinued amLODIPine [Norvasc] 10 mg PO DAILY Discharge Medication List Dorzolamide/Timolol/Pf [Dorzolamide 2%-Timolol 0.5%] 1 drop BOTH EYES BID 04/12/23 [History] Famotidine [Pepcid] 20 mg PO DAILY PRN 04/12/23 [History] Fexofenadine HCl [Pili Allergy] 180 mg PO HS 04/12/23 [History] Latanoprost [Latanoprost 0.005%] 1 drop BOTH EYES HS 04/12/23 [History] Pseudoephedrine 12Hr [Sudafed 12 Hour] 120 mg PO Q12HR PRN 04/12/23 [History] Aspirin 81 mg PO DAILY tab 04/16/23 [Rx] Atorvastatin [Lipitor] 80 mg PO DAILY tab 04/16/23 [Rx] Clopidogrel [Plavix] 75 mg PO DAILY tab 04/16/23 [Rx] Enoxaparin [Lovenox] 40 mg SQ DAILY each 04/16/23 [Rx] Losartan [Cozaar] 50 mg PO HS #0 tab 04/16/23 [Rx] Pantoprazole Sodium [Protonix] 40 mg PO DAILY #30 tab 04/16/23 [Rx] Follow up Appointment(s)/Referral(s): Dennis Pabon DO [Primary Care Provider] - 1-2 days Activity/Diet/Wound Care/Special Instructions: Patient is going to [facility] inpatient rehab Recommend follow-up with primary care provider on discharge Follow-up cardiology outpatient Follow up with neurology outpatient Continue dysphasia 3 chopped diet with one-to-one supervision and aspiration precautions head of the bed elevated 30-45 at all times May continue with indwelling Saab catheter and removing trial void at rehab once more mobile Discharge Disposition: TRANSFER TO SNF/ECF
--- NOTE | 2023-04-16 15:48 | P.PN ---
Subjective Progress Note Date: 04/15/23 Patient was seen for a follow-up. Patient states she is feeling better. Patient denies any changes in her condition. Patient is laying comfortably in the bed. She is able to move her left leg better, but not anymore better than yesterday. Left arm is still flaccid. Her speech has improved. Objective - Vital Signs Vital signs: Vital Signs Temp 98.1 F 04/15/23 12:00 Pulse 95 04/15/23 14:00 Resp 19 04/15/23 14:00 BP 143/73 04/15/23 14:00 Pulse Ox 98 04/15/23 13:00 FiO2 Intake & Output 04/14/23 04/15/23 04/15/23 18:59 06:59 18:59 Intake Total 525 525 650 Output Total 1690 380 915 Balance -1165 145 -265 Weight 78.9 kg Intake: IV 225 525 450 Sodium Chloride 0.9% 1, 225 525 150 000 ml @ 75 mls/hr IV . [id number] ELOISA Rx#:[id number] Sodium Chloride 0.9% 1, 300 000 ml @ 75 mls/hr IV . [id number] ELOISA Rx#:[id number] Intake, IV Titration 100 200 Amount Potassium Chloride 10 meq 100 In Water For Injection 1 100ml.bag @ 100 mls/hr IVPB Q1H ELOISA Rx#: [id number] Potassium Chloride 10 meq 200 In Water For Injection 1 100ml.bag @ 100 mls/hr IVPB Q1H ELOISA Rx#: [id number] Oral 200 Output: Urine 1690 380 915 Other: Voiding Method Indwelling Catheter Indwelling Catheter Indwelling Catheter - Exam Patient's mental status, speech and language functions are normal. Her speech is much more clear, hardly any dysarthria. No aphasia. Her left facial weakness also appears to have improved. Her left arm is completely flaccid with no movement distally or proximally. Her left hip flexion is 3+ to 3-(able to push her leg off the bed up about 30, but not able to maintain that position and brings it down), ankle dorsiflexion 0. Sensory to touch is decreased in the entire left side of the body. No ataxia for [id number] and [id number] with the right side, but cannot check on the left. Patient has a Babinski on the left. - Labs CBC & Chem 7: 04/15/23 06:05 04/15/23 06:05 Assessment and Plan Assessment: * Acute ischemic stroke, with left hemiplegia. Patient has presented with recurrent TIAs in 24 hours, then had an acute stroke for which patient received TPA in a timely manner in the ED. Unfortunately post-TPA, overnight the hemiplegia got worse again. Mechanism of stroke possible from lacunar stroke involving internal capsule, or basis pontis. Rule out embolic source. * Hypertension * Hyperlipidemia Plan: * Transesophageal echocardiogram performed today revealed negative bubble study with no [id number] shunting. Intact interatrial septum with no evidence of PFO. No thrombus seen in the left circulatory system. No bulky calcification or atheroma on aortic valve, on ascending aorta. * MRI of the brain without contrast revealed diffusion weighted imaging demonstrated abnormal increased signal extending from the right putamen into the right sprague radiata, compatible with acute CVA. I personally reviewed MRI, agree with the findings. Also reviewed MRI films on the computer with patient's family on their request. * 2-D echo revealed normal left ventricular size and systolic function with EF reported 55-60%. Mild MR, AR. Left atrial size is normal. * CTA head and neck showed: No evidence of dissection of the cervical internal carotid arteries or vertebral arteries or any evidence of significant stenosis of the carotid bifurcations. No evidence of intracranial high-grade stenosis or intracranial aneurysm. * Patient does not have significant stroke risk factors. Her stroke appears somewhat embolic in nature. No cardiac source identified. Probably cryptogenic stroke.. * Patient apparently had an event monitor placed few days prior to her stroke because of patient's palpitations. 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 * Fasting a.m. lipid panel cholesterol 170, LDL 120, HDL 35 and triglycerides 71. Agree with starting high intensity statins with Lipitor 80 mg. * Hemoglobin A1c 5.7 * Optimize control of blood pressure to normotensive levels <130/80 * Patient started on aspirin 325 mg yesterday. As patient is showing signs of improvement, we will add Plavix 75 mg daily for 30 days as well. Recommend DAPT for 30 days, then stop Plavix and continue aspirin indefinitely. Start Pepcid 20 mg twice a day for gastric ulcer prophylaxis. * PT, OT, speech therapy. * DVT prophylaxis: Lovenox 40 mg subcu daily * Neurologically cleared for transfer to subacute rehab.
== END 2023-04-16 18:22 | DRG 62 ==
LOC: EC 20:49 → 2SICU 23:35 → 5NMEDONC 04-16 01:23
PROVIDERS: ADMIT Internal Medicine; ATTEND Internal Medicine
PROC: 3E03317 Introduction of Other Thrombolytic into Peripheral Vein, Percutaneous Approach (ICD-10-PCS; principal; 2023-04-12)
PROC: B24BZZ4 Ultrasonography of Heart with Aorta, Transesophageal (ICD-10-PCS; 2023-04-15)
DX: I63.9 Cerebral infarction, unspecified (principal); G81.94 Hemiplegia, unspecified affecting left nondominant side; K21.9 Gastro-esophageal reflux disease without esophagitis; I45.10 Unspecified right bundle-branch block; R13.10 Dysphagia, unspecified; R29.713 NIHSS score 13; H40.9 Unspecified glaucoma; I10 Essential (primary) hypertension; R29.810 Facial weakness; G25.3 Myoclonus; E78.5 Hyperlipidemia, unspecified; Z79.02 Long term (current) use of antithrombotics/antiplatelets; Z79.82 Long term (current) use of aspirin; Z79.899 Other long term (current) drug therapy; Z86.73 Personal history of transient ischemic attack (TIA), and cerebral infarction without residual deficits; Z90.49 Acquired absence of other specified parts of digestive tract; Z91.81 History of falling
CPT/HCPCS: 36415; 37195; 70450; 70496; 70498; 70551; 71046; 80048; 80053; 80061; 82550; 83036; 84132; 84484; 85025; 85610; 85730; 93005; 93306; 93312; 93320; 93325; 96374; 99291

== ENCOUNTER → 2023-05-19 | Outpatient (CLI) | payer MEDICARE, BC ==
--- NOTE | 2023-05-19 11:51 | XR ---
EXAMINATION TYPE: XR hand limited LT DATE OF EXAM: 05/19/2023 COMPARISON: NONE HISTORY: Pain TECHNIQUE: Three views are submitted. FINDINGS: Diffuse osteopenia with arthropathy of all PIP and DIP joints. Mild central erosion third digit. Ther e is arthropathy of the first carpometacarpal joint and radiocarpal joint. Tiny bony density adjacent to the base proximal phalanx second digit to small to characterize may be chronic correlate point tenderness to exclude a tiny chip fracture. IMPRESSION: 1. 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 2. Tiny bony density adjacent to the base proximal phalanx second digit to small to characterize may be chronic correlate point tenderness to exclude a tiny chip fracture.
== END | disposition home or self-care (01) ==
LOC: RADXRMAIN 11:23
PROVIDERS: ATTEND Family Medicine
DX: M19.042 Primary osteoarthritis, left hand (principal)

== ENCOUNTER → 2023-07-27 | Outpatient (CLI) | payer MEDICARE, BC ==
--- NOTE | 2023-08-31 12:53 | P.CEMON ---
30 DAY EVENT MONITOR REPORT: INDICATION: CVA. START DATE: 07/27/2023 END DATE: 08/21/2023 Patient wore the monitor for 30 days which is 96 % of total time. FINDINGS: Overall [good] quality study. Patient's baseline rhythm was [normal sinus rhythm]. Baseline heart rate was 68 beats per minute. Maximum Heart Rate: 141 BPM Minimum Heart Rate: 53 BPM There were no observed atrial fibrillation, atrial flutter or sustained ventricular rhythm. There were no observed sinus pauses which were more than 2 second long. There were a few runs of PACs and atrial tachycardia which are not more than 10 beats. There was one run of supraventricular tachycardia which was less than a minute. Occasional PVCs. 2 morphology of PVCs were noticed to Patient symptoms correlation: Patient reported symptoms of irregular heartbeat and flutter sensation which corresponded to PVCs. Gregory Morales MD, RPVI Cardiovascular Disease
== END | disposition home or self-care (01) ==
LOC: RADECHMAIN 08:00
PROVIDERS: ATTEND Family Medicine
DX: I47.10 Supraventricular tachycardia, unspecified (principal); I63.9 Cerebral infarction, unspecified
CPT/HCPCS: 93270